=== PATIENT | female | born 1995 | race Hispanic/Latino ===

== ENCOUNTER 2020-08-29 11:34 | Emergency (ER) | payer SELFPAY ==
--- OUTSIDE RECORDS SUMMARY | 2020-08-29 11:36 | XMS REPORT | Continuity of Care Document ---
:1995 Author Organization [facility] t Address [address] [place] [address] Dr. Barney. [address] [place] [address] Care Team Providers Name Role Phone Unavailable Unavailable Unavailable Problems This patient has no known problems. Allergies, Adverse Reactions, Alerts This patient has no known allergies or adverse reactions. Medications This patient has no known medications. Procedures This patient has no known procedures. Results This patient has no known results.
[2020-08-29 14:03] LABS: Urine Blood 3+ (Negative); Urine Glucose Negative (Negative); Urine Protein Negative (Negative); Urine pH 5.5 (5.0-7.0)
[2020-08-29 14:15] LABS: Absolute Lymphocytes (CBC) 1.2 K/uL (0.7-4.9); Basophils % 0.4 % (0-1.3); Hematocrit 34.5 % (36.0-45.0); Lymphocytes % 17.3 % (15.3-44.8); MPV 8.6 fL (7.6-11.3); RBC Red Blood Cell Count 4.25 M/uL (3.86-4.86)
[2020-08-29 14:32] LABS: BUN Blood Urea Nitrogen 12 mg/dL (7-18); Bicarbonate 26 mmol/L (21-32); Glucose Level 92 mg/dL (74-106); Potassium 4.1 mmol/L (3.5-5.1); Sodium Level 140 mmol/L (136-145)
--- NOTE | 2020-08-29 15:04 | ER ---
Nurse's Notes [facility] Name: Shyann Seymour Age: 24 yrs Sex: Female : 1995 Arrival Date: 08/29/2020 Time: 11:37 Bed 14 Private MD: Diagnosis: Irregular menstruation, unspecified Presentation: 08/29 12:13 Chief complaint: Patient states: at work i was not feeling good and i was having hot tw2 flashes and feeling nauseous and jittery. also my period was a month late but i started my period today. they told me at work my face went pale. Coronavirus screen: At this time, the client does not indicate any symptoms associated with coronavirus-19. Ebola Screen: Patient denies travel to an Ebola-affected area in the 21 days before illness onset. Initial Sepsis Screen: Does the patient meet any 2 criteria? No. Patient's initial sepsis screen is negative. Does the patient have a suspected source of infection? No. Patient's initial sepsis screen is negative. Risk Assessment: Do you want to hurt yourself or someone else? Patient reports no desire to harm self or others. Onset of symptoms was August 29, 2020. 12:13 Method Of Arrival: Ambulatory tw2 12:13 Acuity: ORIN 3 tw2 Triage Assessment: 12:15 General: Appears in no apparent distress. obese, well groomed, Behavior is calm, tw2 cooperative, appropriate for age. Pain: Denies pain. GI: Reports nausea. Historical: - Allergies: 12:14 No Known Allergies; tw2 - Home Meds: 12:14 None [Active]; tw2 - PMHx: 12:14 None; tw2 - PSHx: 12:14 None; tw2 - Immunization history:: Adult Immunizations. - Social history:: Smoking status: . Screenin:55 Abuse screen: Denies threats or abuse. Nutritional screening: No deficits noted. em Tuberculosis screening: No symptoms or risk factors identified. Fall Risk None identified. Assessment: 14:10 General: Appears in no apparent distress. comfortable, Behavior is calm, cooperative, em appropriate for age. Pain: Denies pain. Neuro: Level of Consciousness is awake, alert, obeys commands, Oriented to person, place, time, situation, Appropriate for age. Cardiovascular: Capillary refill < 3 seconds Patient's skin is warm and dry. Respiratory: Airway is patent Respiratory effort is even, unlabored, Respiratory pattern is regular, symmetrical. GI: Abdomen is round non-distended. : Reports missing LMP, 3 weeks late. Derm: Skin is intact, is healthy with good turgor, Skin is pink, warm \T\ dry. Musculoskeletal: Capillary refill < 3 seconds. Vital Signs: 12:13 BP 123 / 86; Pulse 68; Resp 17; Temp 97.9(TE); Pulse Ox 100% on R/A; Weight 89.81 kg tw2 (R); Height 5 ft. 2 in. (157.48 cm); Pain 0/10; 12:13 Body Mass Index 36.21 (89.81 kg, 157.48 cm) tw2 ED Course: 11:37 Patient arrived in ED. ds1 12:14 Triage completed. tw2 12:15 Arm band placed on. tw2 13:45 [facility] Harrell [facility]C [facility]. kb 13:45 Carl Salazar MD is Attending Physician. kb 13:55 Sky Alexander, RN is Primary Nurse. em 13:55 Patient has correct armband on for positive identification. em 15:29 No provider procedures requiring assistance completed. Patient did not have IV access em during this emergency room visit. Administered Medications: No medications were administered Outcome: 15:03 Discharge ordered by . kb 15:29 Discharged to home ambulatory. em 15:29 Condition: good 15:29 Discharge instructions given to patient, Instructed on discharge instructions, follow up and referral plans. Demonstrated understanding of instructions, follow-up care. 15:30 Patient left the ED. em Signatures: Carolyn Harrell FNP-C FNP-Sky Jefferson, RN RN em Tonja Crump ds1 Lesly Serna RN RN tw2
--- NOTE | 2020-08-29 15:04 | EDPHYS ---
Physician Documentation [facility] Name: Shyann Seymour Age: 24 yrs Sex: Female : 1995 Arrival Date: 08/29/2020 Time: 11:37 Bed 14 Private MD: TAQUERIA Physician Carl Salazar HPI: 08/29 15:19 This 24 yrs old Female presents to ER via Ambulatory with complaints of Hot kb Flashes, Nausea. 15:19 The patient presents to the emergency department with nausea. Onset: The kb symptoms/episode began/occurred just prior to arrival. Possible causes: unknown. The symptoms are aggravated by nothing. The symptoms are alleviated by "cooling off". Associated signs and symptoms: Pertinent positives: nausea, shaky, vag bleeding, hot flash. Severity of symptoms: At their worst the symptoms were mild moderate in the emergency department the symptoms have resolved. The patient has not experienced similar symptoms in the past. The patient has not recently seen a physician. Pt reports she was standing at work and became hot, nauseated, and shaky. States she missed her period for a month and then started today. Reports history of anemia and heavy cycles. Symptoms resolved now. Historical: - Allergies: 12:14 No Known Allergies; tw2 - Home Meds: 12:14 None [Active]; tw2 - PMHx: 12:14 None; tw2 - PSHx: 12:14 None; tw2 - Immunization history:: Adult Immunizations. - Social history:: Smoking status: . ROS: 15:21 Constitutional: Negative for fever, chills, and weight loss, Cardiovascular: Negative kb for chest pain, palpitations, and edema, Respiratory: Negative for shortness of breath, cough, wheezing, and pleuritic chest pain, Abdomen/GI: Negative for abdominal pain, vomiting, diarrhea, and constipation. +nausea MS/Extremity: Negative for injury and deformity, Skin: Negative for injury, rash, and discoloration, Neuro: Negative for headache, weakness, numbness, tingling, and seizure. 15:22 : Positive for vaginal bleeding. kb Exam: 15:22 Constitutional: This is a well developed, well nourished patient who is awake, alert, kb and in no acute distress. Head/Face: Normocephalic, atraumatic. Cardiovascular: Regular rate and rhythm with a normal S1 and S2. No gallops, murmurs, or rubs. No pulse deficits. Respiratory: Respirations even and unlabored. No increased work of breathing, no retractions or nasal flaring. Abdomen/GI: Soft, non-tender. No distention Skin: Warm, dry with normal turgor. Normal color. MS/ Extremity: Pulses equal, no cyanosis. Neurovascular intact. Full, normal range of motion. Neuro: Awake and alert, GCS 15, oriented to person, place, time, and situation. Moves all extremities. Normal gait. Vital Signs: 12:13 BP 123 / 86; Pulse 68; Resp 17; Temp 97.9(TE); Pulse Ox 100% on R/A; Weight 89.81 kg tw2 (R); Height 5 ft. 2 in. (157.48 cm); Pain 0/10; 12:13 Body Mass Index 36.21 (89.81 kg, 157.48 cm) tw2 MDM: 13:46 Patient medically screened. kb 15:22 Data reviewed: vital signs, nurses notes. Data interpreted: Pulse oximetry: on room air kb is 100 %. Interpretation: normal. Counseling: I had a detailed discussion with the patient and/or guardian regarding: the historical points, exam findings, and any diagnostic results supporting the discharge/admit diagnosis, lab results, the need for outpatient follow up, a family practitioner, an OB/Gyne specialist, to return to the emergency department if symptoms worsen or persist or if there are any questions or concerns that arise at home. 08/29 14:03 Order name: Urine Dipstick-Ancillary; Complete Time: 14:15 EDMS 08/29 14:03 Order name: CBC with Diff; Complete Time: 14:17 kb 08/29 13:27 Order name: Urine Dipstick-Ancillary (obtain specimen); Complete Time: 14:05 kb 08/29 14:06 Order name: Basic Metabolic Panel em 08/29 14:07 Order name: Basic Metabolic Panel; Complete Time: 14:32 EDMS 08/29 14:11 Order name: Urine --Ancillary (enter results); Complete Time: 14:32 bd 08/29 13:27 Order name: Urine Test (obtain specimen); Complete Time: 14:05 kb Administered Medications: No medications were administered Disposition: 08/30 11:20 Co-signature as Attending Physician, Carl Salazar MD I agree with the assessment and vijaya plan of care. Disposition: 08/29/20 15:03 Discharged to Home. Impression: Irregular menstruation, unspecified. - Condition is Stable. - Discharge Instructions: Abnormal Uterine Bleeding, [id number]. - Medication Reconciliation Form, Thank You Letter, Antibiotic Education, Prescription Opioid Use, Work release form form. - Follow up: Emergency Department; When: As needed; Reason: Worsening of condition. Follow up: Private Physician; When: 2 - 3 days; Reason: Recheck today's complaints, Continuance of care, Re-evaluation by your physician. Signatures: Dispatcher [employer] EDCarolyn Echeverria, HOG ROOM SUPERVISOR-C HOG ROOM SUPERVISOR-Carl Cavazos MD MD cha Munoz, Edgar, RN RN em Lesly Serna RN RN tw2 Corrections: (The following items were deleted from the chart) 08/29 15:30 15:03 08/29/2020 15:03 Discharged to Home. Impression: Irregular menstruation, em unspecified. Condition is Stable. Forms are Medication Reconciliation Form, Thank You Letter, Antibiotic Education, Prescription Opioid Use. Follow up: Emergency Department; When: As needed; Reason: Worsening of condition. Follow up: Private Physician; When: 2 - 3 days; Reason: Recheck today's complaints, Continuance of care, Re-evaluation by your physician. kb
[2020-08-29 15:42] VITALS: BP 123/86; TEMP 97.9; O2SAT 100
== END 2020-08-29 15:30 | disposition home or self-care (01) ==
LOC: ER 11:34
DX: N92.6 Irregular menstruation, unspecified (principal)
CPT/HCPCS: 36415; 80048; 81003; 81025; 85025; 99281

== ENCOUNTER 2022-09-16 12:11 | Emergency (ER) | payer OTHER, SELFPAY ==
--- OUTSIDE RECORDS SUMMARY | 2022-09-16 12:22 | XMS REPORT | Continuity of Care Document ---
:1995 Author Organization [facility] t Address [address] [place] [address] Care Team Providers Name Role Phone Gordo Alatorre Primary Care Physician TRELL AGUILAR Attending Clinician Unavailable TRELL AGUILAR Attending Clinician Unavailable Lab, Kali - Db Attending Clinician Unavailable Darlin Car Attending Clinician [phone] NATE SIGALA Attending Clinician Unavailable Ultrasound, AngSamMfgrace Attending Clinician Unavailable Nate Sigala MD Attending Clinician Tootie Fernandez RN Attending Clinician Unavailable Doctor Unassigned, [place] Attending Clinician Unavailable DARLIN MAZARIEGOS Attending Clinician Unavailable Alba Cobian MD Attending Clinician ALBA COBIAN Attending Clinician Unavailable ALBA COBIAN Attending Clinician Unavailable Andrés Lackey Attending Clinician GARY KINCAID Attending Clinician Unavailable Gary Kincaid MD Attending Clinician DARREL HO Attending Clinician Unavailable HARRY CONLEY Attending Clinician Unavailable Payers Payer Name Policy Type Policy Number Effective Date Expiration Date S miguel angel [facility] [id number] 2022 00:00:00 Problems Condition Condition Condition Status Onset Resolution Last Treating Co mments Source Name Details Category Date Date Treatment Clinician Date Need for Need for Disease Active Unive rs tetanus, tetanus, 5-15 ity of diphtheria [place] 00[place] , [place] , and 00 Medical acellular acellular Bran ch pertussis pertussis (Tdap) (Tdap) vaccine vaccine Congestion Congestion Disease Active U nivers of upper of upper 4-17 ity of respirator respirator 00:00[place] y tract y tract 00 [facility] Branch Nausea and Nausea and Disease Active U nivers vomiting vomiting 1-18 ity of during during 00:00: [place] [facility] Rubella Rubella Disease Active 2021-04 Overview: Univ ers non-immune non-immune 2-23 Formattin ity of status, status, 00:00: g of this [place] antepartum antepartum 00 note Me dical might be Branch different from the original. Address pp Abnormal Abnormal Disease Active 2021-04 Overview: Un betty maternal maternal -23 Formattin ity of glucose glucose 00:00: g of this [place] tolerance, tolerance, 00 note Me dical antepartum antepartum might be Branch different from the original. Pending 3hr gtt Supervisio Supervisio Disease Active 2021-04 U nivers n of n of 2-22 ity of high-risk high-risk [place] [address] [facility] Multiparit Multiparit Disease Active 2021-04 U nivers y y 2-22 ity of 00:00: [place] 00 [facility] Branch History of History of Disease Active 2021-04 U nivers gestationa gestationa 2-22 it y of l l 00:00: [place] hypertensi hypertensi 00 Me dical on on Branch History of History of Disease Active 2021-04 U nivers twin twin 2-22 [place] 00 Medica l Bran ch History of History of Disease Active 2021-04 U nivers 2-22 ity of section section 00:00: [place] 00 [facility] Branch Desires Desires Disease Active 2021-04 Univers 2-22 ity of (vaginal (vaginal 00:00: [place] 00 Medical after after Branch ) ) trial trial Obesity in Obesity in Disease Active 2021-04 U nivers , , 2- it y of antepartum antepartum 00:00[place] 00 [place] History of History of Disease Active 2021-04 U nivers 2-22 it[place] of delivery, delivery, 00:[place] 00 Medi kvng , , Bran ch unspecifie unspecifie d d trimester trimester Routine Routine Disease Active Univers 9 it y of follow-up follow-up 00:[place] Anemia of Anemia of Disease Active Uni vers mother in mother in 01-20 ity of , , 00:00[place] 00 Me dical condition condition Bran ch Anemia of Anemia of Disease Active Overview: Univers mother in mother in 07-17 Formattin i ty of , , 00:00: g of this [place] antepartum antepartum 00 note Me dical might be Branch different from the original. Ferrous Sulfate 325mg and Vitamin C TID. Repeat in 1 month. ICD10 Diagnosis Term Pharm Tech Utility Asthma Asthma Disease Active Overview: Univer s - Formattin ity of 00:00: g of this [place] 00 note Medical might be Branch different from the original. ICD10 Diagnosis Term Pharm Tech Utility Allergies, Adverse Reactions, Alerts Allergy Allergy Status Severity Reaction(s) Onset Inactive Treating Comm ents Source Name Type Date Date Clinician NO KNOWN Drug Active Univers ALLERGIE Class ity of S [facility] Social History Social Habit Start Date Stop Date Quantity Comments Source ASSERTION 2022-03-09 [facility] 00:00:00 [facility] Alcohol intake 2022-09-09 2022-09-09 0 /d [facility] 00:00:00 00:00:00 [facility] Exposure to 2022-08-06 2022-08-16 Not sure [facility] -CoV-2 00:00:00 07:03:00 [facility] (event) [place] Tobacco use and 2022-05-15 2022-05-15 Smokeless tobacco Un iversity of exposure 00:00:00 00:00:00 non-user [facility] Sex Ass[birth year] At [birth year] Universit y of 00:00:00 00:00:00 [facility] Smoking Status Start Date Stop Date Source Never smoked tobacco [facility] Medications Ordered Filled Start Stop Current Ordering Indication Dosage Frequency Signature Comments Components Source Medication Medication Date Date Medication? Clinician (SIG) Name Name aspirin 81 Yes [id number] 81mg Take 1 Univers mg EC 4-25 tablet by ity of tablet 00:00: mouth in [place] 00 the Medical morning. Branch aspirin 81 Yes [id number] 81mg Take 1 Univers mg EC 4-25 tablet by ity of tablet 00:00: mouth in [place] 00 the Medical morning. Branch ferrous Yes [id number] 325mg Take 1 Un betty sulfate 4-22 tablet by ity of (IRON, 00:00: mouth in [place] FERROUS 00 the Medical SULFATE,) morning Branch 325 mg (65 and 1 mg iron) tablet in tablet the evening. ascorbic Yes [id number] 500mg Take 1 U nivers acid, 4-22 tablet by ity of vitamin C, 00:00: mouth in [place] 500 mg 00 the Medical tablet morning Branch and 1 tablet in the evening. ferrous 2022- Yes [id number] 325mg Take 1 Un betty sulfate 4-22 tablet by ity of (IRON, 00:00: mouth in [place] FERROUS 00 the Medical SULFATE,) morning Branch 325 mg (65 and 1 mg iron) tablet in tablet the evening. ascorbic 2022- Yes [id number] 500mg Take 1 U nivers acid, 4-22 tablet by ity of vitamin C, 00:00: mouth in [place] 500 mg 00 the Medical tablet morning Branch and 1 tablet in the evening. ondansetron Yes [id number] 8mg Take 1 Univers 8 mg 1-18 tablet by ity of disintegrat 00:00: mouth [place] ing tablet 00 every 8 Medica l (eight) Branch hours as needed for Nausea and Vomiting (N/V). aspirin 81 Yes [id number] 81mg Take 1 Univers mg EC 1-18 tablet by ity of tablet 00:00: mouth in [place] 00 the Medical morning. Branch ondansetron Yes [id number] 8mg Take 1 Univers 8 mg 1-18 tablet by ity of disintegrat 00:00: mouth [place] ing tablet 00 every 8 Medica l (eight) Branch hours as needed for Nausea and Vomiting (N/V). aspirin 81 3-0 Yes [id number] 81mg Take 1 Univers mg EC 1-18 tablet by ity of tablet 00:00: mouth in [place] 00 the Medical morning. Branch ondansetron 3-0 Yes [id number] 8mg Take 1 Univers 8 mg 1-18 tablet by ity of disintegrat 00:00: mouth [place] ing tablet 00 every 8 Medica l (eight) Branch hours as needed for Nausea and Vomiting (N/V). aspirin 81 2022-0 Yes [id number] 81mg Take 1 Univers mg EC 1-18 tablet by ity of tablet 00:00: mouth in [place] 00 the Medical morning. Branch ondansetron 3-0 Yes [id number] 8mg Take 1 Univers 8 mg 1-18 tablet by ity of disintegrat 00:00: mouth [place] ing tablet 00 every 8 Medica l (eight) Branch hours as needed for Nausea and Vomiting (N/V). aspirin 81 2022-0 Yes [id number] 81mg Take 1 Univers mg EC 1-18 tablet by ity of tablet 00:00: mouth in [place] 00 the Medical morning. Branch ondansetron 3-0 Yes [id number] 8mg Take 1 Univers 8 mg 1-18 tablet by ity of disintegrat 00:00: mouth [place] ing tablet 00 every 8 Medica l (eight) Branch hours as needed for Nausea and Vomiting (N/V). aspirin 81 3-0 Yes [id number] 81mg Take 1 Univers mg EC 1-18 tablet by ity of tablet 00:00: mouth in [place] 00 the Medical morning. Branch ondansetron 3-0 Yes [id number] 8mg Take 1 Univers 8 mg 1-18 tablet by ity of disintegrat 00:00: mouth [place] ing tablet 00 every 8 Medica l (eight) Branch hours as needed for Nausea and Vomiting (N/V). aspirin 81 3-0 Yes [id number] 81mg Take 1 Univers mg EC 1-18 tablet by ity of tablet 00:00: mouth in [place] 00 the Medical morning. Branch ondansetron 3-0 Yes [id number] 8mg Take 1 Univers 8 mg 1-18 tablet by ity of disintegrat 00:00: mouth [place] ing tablet 00 every 8 Medica l (eight) Branch hours as needed for Nausea and Vomiting (N/V). aspirin 81 3-0 Yes [id number] 81mg Take 1 Univers mg EC 1-18 tablet by ity of tablet 00:00: mouth in [place] 00 the Medical morning. Branch ondansetron 3-0 Yes [id number] 8mg Take 1 Univers 8 mg 1-18 tablet by ity of disintegrat 00:00: mouth [place] ing tablet 00 every 8 Medica l (eight) Branch hours as needed for Nausea and Vomiting (N/V). aspirin 81 2022-0 Yes [id number] 81mg Take 1 Univers mg EC 1-18 tablet by ity of tablet 00:00: mouth in [place] 00 the Medical morning. Branch ondansetron 3-0 Yes [id number] 8mg Take 1 Univers 8 mg 1-18 tablet by ity of disintegrat 00:00: mouth [place] ing tablet 00 every 8 Medica l (eight) Branch hours as needed for Nausea and Vomiting (N/V). aspirin 81 2022-0 Yes [id number] 81mg Take 1 Univers mg EC 1-18 tablet by ity of tablet 00:00: mouth in [place] 00 the Medical morning. Branch ondansetron 3-0 Yes [id number] 8mg Take 1 Univers 8 mg 1-18 tablet by ity of disintegrat 00:00: mouth [place] ing tablet 00 every 8 Medica l (eight) Branch hours as needed for Nausea and Vomiting (N/V). aspirin 81 3-0 Yes [id number] 81mg Take 1 Univers mg EC 1-18 tablet by ity of tablet 00:00: mouth in [place] 00 the Medical morning. Branch ondansetron 3-0 Yes [id number] 8mg Take 1 Univers 8 mg 1-18 tablet by ity of disintegrat 00:00: mouth [place] ing tablet 00 every 8 Medica l (eight) Branch hours as needed for Nausea and Vomiting (N/V). aspirin 81 3-0 Yes [id number] 81mg Take 1 Univers mg EC 1-18 tablet by ity of tablet 00:00: mouth in [place] 00 the Medical morning. Branch ondansetron 3-0 Yes [id number] 8mg Take 1 Univers 8 mg 1-18 tablet by ity of disintegrat 00:00: mouth [place] ing tablet 00 every 8 Medica l (eight) Branch hours as needed for Nausea and Vomiting (N/V). aspirin 81 3-0 Yes [id number] 81mg Take 1 Univers mg EC 1-18 tablet by ity of tablet 00:00: mouth in [place] 00 the Medical morning. Branch ondansetron 3-0 Yes [id number] 8mg Take 1 Univers 8 mg 1-18 tablet by ity of disintegrat 00:00: mouth [place] ing tablet 00 every 8 Medica l (eight) Branch hours as needed for Nausea and Vomiting (N/V). aspirin 81 2022-0 Yes [id number] 81mg Take 1 Univers mg EC 1-18 tablet by ity of tablet 00:00: mouth in [place] 00 the Medical morning. Branch ondansetron 3-0 Yes [id number] 8mg Take 1 Univers 8 mg 1-18 tablet by ity of disintegrat 00:00: mouth [place] ing tablet 00 every 8 Medica l (eight) Branch hours as needed for Nausea and Vomiting (N/V). aspirin 81 2022-0 Yes [id number] 81mg Take 1 Univers mg EC 1-18 tablet by ity of tablet 00:00: mouth in [place] 00 the Medical morning. Branch ondansetron 3-0 Yes [id number] 8mg Take 1 Univers 8 mg 1-18 tablet by ity of disintegrat 00:00: mouth [place] ing tablet 00 every 8 Medica l (eight) Branch hours as needed for Nausea and Vomiting (N/V). aspirin 81 3-0 Yes [id number] 81mg Take 1 Univers mg EC 1-18 tablet by ity of tablet 00:00: mouth in [place] 00 the Medical morning. Branch ondansetron 3-0 Yes [id number] 8mg Take 1 Univers 8 mg 1-18 tablet by ity of disintegrat 00:00: mouth [place] ing tablet 00 every 8 Medica l (eight) Branch hours as needed for Nausea and Vomiting (N/V). aspirin 81 3-0 Yes [id number] 81mg Take 1 Univers mg EC 1-18 tablet by ity of tablet 00:00: mouth in [place] 00 the Medical morning. Branch ondansetron 3-0 Yes [id number] 8mg Take 1 Univers 8 mg 1-18 tablet by ity of disintegrat 00:00: mouth [place] ing tablet 00 every 8 Medica l (eight) Branch hours as needed for Nausea and Vomiting (N/V). aspirin 81 0 Yes [id number] 81mg Take 1 Univers mg EC 1-18 tablet by ity of tablet 00:00: mouth in [place] 00 the Medical morning. [place] ondansetron Yes [id number] 8mg Take 1 Univers 8 mg 1-18 tablet by ity of disintegrat 00:00: mouth [place] ing tablet 00 every 8 Medica l (eight) Branch hours as needed for Nausea and Vomiting (N/V). ondansetron Yes [id number] 8mg Take 1 Univers 8 mg 1-18 tablet by ity of disintegrat 00:00: mouth [place] ing tablet 00 every 8 Medica l (eight) Branch hours as needed for Nausea and Vomiting (N/V). ondansetron Yes [id number] 8mg Take 1 Univers 8 mg 1-18 tablet by ity of disintegrat 00:00: mouth [place] ing tablet 00 every 8 Medica l (eight) Branch hours as needed for Nausea and Vomiting (N/V). aspirin 81 2022- No [id number] 81mg Take 1 Univers mg EC 1-18 04-21 tablet by ity of tablet 00:00: 00:00 mouth in [place] 00 :00 the Medical morning. [place] aspirin 81 2022- No [id number] 81mg Take 1 Univers mg EC 1-18 04-21 tablet by ity of tablet 00:00: 00:00 mouth in [place] 00 :00 the Medical morning. Branch 2021-04 Yes [id number] 1{tbl} Take 1 U nivers multivitami 2-22 tablet by ity of n ( 00:00: mouth in [place] VITAMIN) 00 the Medical tablet morning. Branch 2021-04 Yes [id number] 1{tbl} Take 1 U nivers multivitami 2-22 tablet by ity of n ( 00:00: mouth in [place] VITAMIN) 00 the Medical tablet morning. Branch 2021-04 Yes [id number] 1{tbl} Take 1 U nivers multivitami 2-22 tablet by ity of n ( 00:00: mouth in [place] VITAMIN) 00 the Medical tablet morning. Branch 2021-04 Yes [id number] 1{tbl} Take 1 U nivers multivitami 2-22 tablet by ity of n ( 00:00: mouth in [place] VITAMIN) 00 the Medical tablet morning. [place] 2021-04 Yes [id number] 1{tbl} Take 1 U nivers multivitami 2-22 tablet by ity of n ( 00:00: mouth in [place] VITAMIN) 00 the Medical tablet morning. [place] 2021-04 Yes [id number] 1{tbl} Take 1 U nivers multivitami 2-22 tablet by ity of n ( 00:00: mouth in [place] VITAMIN) 00 the Medical tablet morning. [place] 2021-04 Yes [id number] 1{tbl} Take 1 U nivers multivitami 2-22 tablet by ity of n ( 00:00: mouth in [place] VITAMIN) 00 the Medical tablet morning. [place] 2021-04 Yes [id number] 1{tbl} Take 1 U nivers multivitami 2-22 tablet by ity of n ( 00:00: mouth in [place] VITAMIN) 00 the Medical tablet morning. [place] 2021-04 Yes [id number] 1{tbl} Take 1 U nivers multivitami 2-22 tablet by ity of n ( 00:00: mouth in [place] VITAMIN) 00 the Medical tablet morning. [place] 2021-04 Yes [id number] 1{tbl} Take 1 U nivers multivitami 2-22 tablet by ity of n ( 00:00: mouth in [place] VITAMIN) 00 the Medical tablet morning. [place] 2021-04 Yes [id number] 1{tbl} Take 1 U nivers multivitami 2-22 tablet by ity of n ( 00:00: mouth in [place] VITAMIN) 00 the Medical tablet morning. [place] 2021-04 Yes [id number] 1{tbl} Take 1 U nivers multivitami 2-22 tablet by ity of n ( 00:00: mouth in [place] VITAMIN) 00 the Medical tablet morning. [facility] 2021-04 Yes [id number] 1{tbl} Take 1 U nivers multivitami 2-22 tablet by ity of n ( 00:00: mouth in [place] VITAMIN) 00 the Medical tablet morning. [facility] 2021-04 Yes [id number] 1{tbl} Take 1 U nivers multivitami 2-22 tablet by ity of n ( 00:00: mouth in [place] VITAMIN) 00 the Medical tablet morning. [place] 2021-04 Yes [id number] 1{tbl} Take 1 U nivers multivitami 2-22 tablet by ity of n ( 00:00: mouth in [place] VITAMIN) 00 the Medical tablet morning. [place] 2021-04 Yes [id number] 1{tbl} Take 1 U nivers multivitami 2-22 tablet by ity of n ( 00:00: mouth in [place] VITAMIN) 00 the Medical tablet morning. [place] 2021-04 Yes [id number] 1{tbl} Take 1 U nivers multivitami 2-22 tablet by ity of n ( 00:00: mouth in [place] VITAMIN) 00 the Medical tablet morning. [place] 2021-04 Yes [id number] 1{tbl} Take 1 U nivers multivitami 2-22 tablet by ity of n ( 00:00: mouth in [place] VITAMIN) 00 the Medical tablet morning. [place] 2021-04 Yes [id number] 1{tbl} Take 1 U nivers multivitami 2-22 tablet by ity of n ( 00:00: mouth in [place] VITAMIN) 00 the Medical tablet morning. [place] 2021-04 Yes [id number] 1{tbl} Take 1 U nivers multivitami 2-22 tablet by ity of n ( 00:00: mouth in [place] VITAMIN) 00 the Medical tablet morning. [place] 2021-04 Yes [id number] 1{tbl} Take 1 U nivers multivitami 2-22 tablet by ity of n ( 00:00: mouth in [place] VITAMIN) 00 the Medical tablet morning. [place] 2021-04 Yes [id number] 1{tbl} Take 1 U nivers multivitami 2-22 tablet by ity of n ( 00:00: mouth in [place] VITAMIN) 00 the Medical tablet morning. [place] 2021-04 Yes [id number] 1{tbl} Take 1 U nivers multivitami 2-22 tablet by ity of n ( 00:00: mouth in [place] VITAMIN) 00 the Medical tablet morning. [facility] 2021-04 Yes [id number] 1{tbl} Take 1 U nivers multivitami 2-22 tablet by ity of n ( 00:00: mouth in [place] VITAMIN) 00 the Medical tablet morning. [facility] 2021-04 Yes [id number] 1{tbl} Take 1 U nivers multivitami 2-22 tablet by ity of n ( 00:00: mouth in [place] VITAMIN) 00 the Medical tablet morning. [facility] 2021-04 Yes [id number] 1{tbl} Take 1 U nivers multivitami 2-22 tablet by ity of n ( 00:00: mouth in [place] VITAMIN) 00 the Medical tablet morning. [facility] 2021-04 Yes [id number] 1{tbl} Take 1 U nivers multivitami 2-22 tablet by ity of n ( 00:00: mouth in [place] VITAMIN) 00 the Medical tablet morning. [facility] 2021-04 Yes [id number] 1{tbl} Take 1 U nivers multivitami 2-22 tablet by ity of n ( 00:00: mouth in [place] VITAMIN) 00 the Medical tablet morning. [facility] 2021-04 Yes [id number] 1{tbl} Take 1 U nivers multivitami 2-22 tablet by ity of n ( 00:00: mouth in [place] VITAMIN) 00 the Medical tablet morning. [facility] 2021-04 Yes [id number] 1{tbl} Take 1 U nivers multivitami 2-22 tablet by ity of n ( 00:00: mouth in [place] VITAMIN) 00 the Medical tablet morning. [place] ketorolac 2021-04 No 30mg 30 mg, Unive rs (TORADOL) 0-06 -06 Slow IV ity of injection 09:30: 08:27 [place], [place] 30 mg 00 :00 ONCE, 1 Medical dose, On [facility] 01/31/22 at 0430, Routine cefTRIAXone 2021-04- No 1000mg 1,000 mg, Univers (ROCEPHIN) 0-06 10-06 IV ity of 1,000 mg in 09:00: 09:25 Piggyback, [place] NaCl 0.9% 00 :00 ONCE, 1 Medical (NS) 50 mL dose, On [facility] h MINI-BAG [place] 01/31/22 at 0400, Administer over 30 Minutes, 50 mL
Reas on for Anti-Infec tive: Documented Infection< br>Documen tyron Infection Site: Urine<br&g t;Duration of Therapy: Other (see Comments) cefdinir 2021-04 Yes [id number] 300mg Take 1 U nivers 300 mg 0-06 capsule by ity of capsule 00:00: mouth in [place] 00 the Medical morning Branch and 1 capsule in the evening. phenazopyri 2021-04 Yes [id number] 200mg Take 1 Univers dine 200 mg 0-06 tablet by ity of tablet 00:00: mouth in [place] 00 the Medical morning Branch and 1 tablet at noon and 1 tablet in the evening. ibuprofen 2021-04 Yes [id number] 800mg Take 1 Univers 800 mg 0-06 tablet by ity of tablet 00:00: mouth [place] 00 every 8 Medical (eight) Branch hours as needed for Pain (scale 4-6). cefdinir 2021-04- No [id number] 300mg Take 1 Univers 300 mg 0-06 12-22 capsule by ity of capsule 00:00: 00:00 mouth in [place] 00 :00 the Medical morning Branch and 1 capsule in the evening. phenazopyri 2021-04- No [id number] 200mg Take 1 Univers dine 200 mg 0-06 12-22 tablet by it y of tablet 00:00: 00:00 mouth in [place] 00 :00 the Medical morning Branch and 1 tablet at noon and 1 tablet in the evening. ibuprofen 2021-04- No [id number] 800mg Take 1 Univers 800 mg 0-06 12-22 tablet by ity of tablet 00:00: 00:00 mouth [place] 00 :00 every 8 Medical (eight) Branch hours as needed for Pain (scale 4-6). cefdinir 2021-04- No [id number] 300mg Take 1 Univers 300 mg 0-06 12-22 capsule by ity of capsule 00:00: 00:00 mouth in [place] 00 :00 the Medical morning Branch and 1 capsule in the evening. phenazopyri 2021-04- No [id number] 200mg Take 1 Univers dine 200 mg 0-06 12-22 tablet by it y of tablet 00:00: 00:00 mouth in [place] 00 :00 the Medical morning Branch and 1 tablet at noon and 1 tablet in the evening. ibuprofen 2021-04- No [id number] 800mg Take 1 Univers 800 mg 004-18 tablet by ity of tablet 00:00: 00:00 mouth [place] 00 :00 every 8 Medical (eight) Branch hours as needed for Pain (scale 4-6). cefdinir 2021-04- No [id number] 300mg Take 1 Univers 300 mg 004-18 capsule by ity of capsule 00:00: 00:00 mouth in [place] 00 :00 the Medical morning Branch and 1 capsule in the evening. phenazopyri 2021-04- No [id number] 200mg Take 1 Univers dine 200 mg 004-18 tablet by it y of tablet 00:00: 00:00 mouth in [place] 00 :00 the Medical morning Branch and 1 tablet at noon and 1 tablet in the evening. ibuprofen 2021-04- No [id number] 800mg Take 1 Univers 800 mg 004-18 tablet by ity of tablet 00:00: 00:00 mouth [place] 00 :00 every 8 Medical (eight) Branch hours as needed for Pain (scale 4-6). phenazopyri 2020-0 Yes [id number] 200mg Take 2 Univers dine 3-24 tablets by ity of (PYRIDIUM) 00:00: [place] 100 mg 00 (three) Medical tablet times Branch daily as needed for Pain (scale 4-6). phenazopyri 2020-0 Yes [id number] 200mg Take 2 Univers dine 3-24 tablets by ity of (PYRIDIUM) 00:00: [place] mg 00 (three) Medical tablet times Branch daily as needed for Pain (scale 4-6). phenazopyri 2020-0 Yes [id number] 200mg Take 2 Univers dine 3-24 tablets by ity of (PYRIDIUM) 00:00: [place] mg 00 (three) Medical tablet times Branch daily as needed for Pain (scale 4-6). phenazopyri 2020-0 2021- No [id number] 200mg Take 2 Univers dine 3-24 12-22 tablets by ity of (PYRIDIUM) 00:00: 00:00 mouth 3 [place] 100 mg 00 :00 (three) Medical tablet times Branch daily as needed for Pain (scale 4-6). phenazopyri 2021- No [id number] 200mg Take 2 Univers dine 3-24 12-22 tablets by ity of (PYRIDIUM) 00:00: 00:00 mouth 3 [place] 100 mg 00 :00 (three) Medical tablet times Branch daily as needed for Pain (scale 4-6). phenazopyri No [id number] 200mg Take 2 Univers dine 3-24 12-22 tablets by ity of (PYRIDIUM) 00:00: 00:00 mouth 3 [place] 100 mg 00 :00 (three) Medical tablet times Branch daily as needed for Pain (scale 4-6). ibuprofen Yes 600mg Take 1 Unive rs 600 mg 9- tablet by ity of tablet 00:00: mouth [place] 00 every 6 Medical (six) Branch hours as needed for Pain (scale 1-3) or Pain (scale 4-6). ibuprofen Yes 600mg Take 1 Unive rs 600 mg 9-01 tablet by ity of tablet 00:00: mouth [place] 00 every 6 Medical (six) Branch hours as needed for Pain (scale 1-3) or Pain (scale 4-6). ibuprofen Yes 600mg Take 1 Unive rs 600 mg 9-01 tablet by ity of tablet 00:00: mouth [place] 00 every 6 Medical (six) Branch hours as needed for Pain (scale 1-3) or Pain (scale 4-6). ibuprofen No 600mg Take 1 Univ ers 600 mg 9-04-18 tablet by ity of tablet 00:00: 00:00 mouth [place] 00 :00 every 6 Medical (six) Branch hours as needed for Pain (scale 1-3) or Pain (scale 4-6). ibuprofen No 600mg Take 1 Univ ers 600 mg 9-04-18 tablet by ity of tablet 00:00: 00:00 mouth [place] 00 :00 every 6 Medical (six) Branch hours as needed for Pain (scale 1-3) or Pain (scale 4-6). ibuprofen 2017-0 2022- No 600mg Take 1 Univ ers 600 mg 12-27 12-22 tablet by ity of tablet 00:00: 00:00 mouth [place] 00 :00 every 6 Medical (six) Branch hours as needed for Pain (scale 1-3) or Pain (scale 4-6). ibuprofen Yes 600mg Take 1 Unive rs 600 mg 8-31 tablet by ity of tablet 00:00: mouth [place] 00 every 6 Medical (six) Branch hours as needed for Pain (scale 1-3) or Pain (scale 4-6) (Pain). Take with food or milk. ibuprofen Yes 600mg Take 1 Unive rs 600 mg 8-31 tablet by ity of tablet 00:00: mouth [place] 00 every 6 Medical (six) Branch hours as needed for Pain (scale 1-3) or Pain (scale 4-6) (Pain). Take with food or milk. ibuprofen Yes 600mg Take 1 Unive rs 600 mg 8-31 tablet by ity of tablet 00:00: mouth [place] 00 every 6 Medical (six) Branch hours as needed for Pain (scale 1-3) or Pain (scale 4-6) (Pain). Take with food or milk. ibuprofen 2021- No 600mg Take 1 Univ ers 600 mg 8-31 12-22 tablet by ity of tablet 00:00: 00:00 mouth [place] 00 :00 every 6 Medical (six) Branch hours as needed for Pain (scale 1-3) or Pain (scale 4-6) (Pain). Take with food or milk. ibuprofen 2021- No 600mg Take 1 Univ ers 600 mg 8-31 12-22 tablet by ity of tablet 00:00: 00:00 mouth [place] 00 :00 every 6 Medical (six) Branch hours as needed for Pain (scale 1-3) or Pain (scale 4-6) (Pain). Take with food or milk. ibuprofen 2021- No 600mg Take 1 Univ ers 600 mg 8-31 12-22 tablet by ity of tablet 00:00: 00:00 mouth [place] 00 :00 every 6 Medical (six) Branch hours as needed for Pain (scale 1-3) or Pain (scale 4-6) (Pain). Take with food or milk. ferrous Yes [id number] 325mg Take 1 Un betty sulfate 7-03 tablet by ity of (IRON, 00:00: mouth 3 [place] FERROUS 00 (three) Medical SULFATE,) times Branch 325 mg (65 daily with mg iron) meals. tablet ferrous Yes [id number] 325mg Take 1 Un betty sulfate 7-03 tablet by ity of (IRON, 00:00: mouth 3 [place] FERROUS 00 (three) Medical SULFATE,) times Branch 325 mg (65 daily with mg iron) meals. tablet ferrous Yes [id number] 325mg Take 1 Un betty sulfate 7-03 tablet by ity of (IRON, 00:00: mouth 3 [place] FERROUS 00 (three) Medical SULFATE,) times Branch 325 mg (65 daily with mg iron) meals. tablet ferrous 2021- No [id number] 325mg Take 1 U nivers sulfate 7- 12-22 tablet by ity of (IRON, 00:00: 00:00 mouth 3 [place] FERROUS 00 :00 (three) Medical SULFATE,) times Branch 325 mg (65 daily with mg iron) meals. tablet ferrous 2021- No [id number] 325mg Take 1 U nivers sulfate 7- 12-22 tablet by ity of (IRON, 00:00: 00:00 mouth 3 [place] FERROUS 00 :00 (three) Medical SULFATE,) times Branch 325 mg (65 daily with mg iron) meals. tablet ferrous 2021- No [id number] 325mg Take 1 U nivers sulfate 7- 12-22 tablet by ity of (IRON, 00:00: 00:00 mouth 3 [place] FERROUS 00 :00 (three) Medical SULFATE,) times Branch 325 mg (65 daily with mg iron) meals. tablet Yes [id number] 1{tbl} Take 1 U nivers Vit-Iron 2-09 tablet by ity of Fumarate-FA 00:00: mouth [place] (RIGHT STEP 00 daily. She Me dical may have Branch VITAMINS) any brand 27-0.8 mg covered by per tablet her insurance. Yes [id number] 1{tbl} Take 1 U nivers Vit-Iron 2-09 tablet by ity of Fumarate-FA 00:00: mouth [place] (RIGHT STEP 00 daily. She Me dical may have Branch VITAMINS) any brand 27-0.8 mg covered by per tablet her insurance. Yes [id number] 1{tbl} Take 1 U nivers Vit-Iron 2-09 tablet by ity of Fumarate-FA 00:00: mouth [place] (RIGHT STEP 00 daily. She Me dical may have Branch VITAMINS) any brand 27-0.8 mg covered by per tablet her insurance. Yes [id number] 1{tbl} Take 1 U nivers Vit-Iron 2-09 tablet by ity of Fumarate-FA 00:00: mouth [place] (RIGHT STEP 00 daily. She Me dical may have Branch VITAMINS) any brand 27-0.8 mg covered by per tablet her insurance. Yes [id number] 1{tbl} Take 1 U nivers Vit-Iron 2-09 tablet by ity of Fumarate-FA 00:00: mouth [place] (RIGHT STEP 00 daily. She Me dical may have Branch VITAMINS) any brand 27-0.8 mg covered by per tablet her insurance. Yes [id number] 1{tbl} Take 1 U nivers Vit-Iron 2-09 tablet by ity of Fumarate-FA 00:00: mouth [place] (RIGHT STEP 00 daily. She Me dical may have Branch VITAMINS) any brand 27-0.8 mg covered by per tablet her insurance. Yes [id number] 1{tbl} Take 1 U nivers Vit-Iron 2-09 tablet by ity of Fumarate-FA 00:00: mouth [place] (RIGHT STEP 00 daily. She Me dical may have Branch VITAMINS) any brand 27-0.8 mg covered by per tablet her insurance. 2017 Yes [id number] 1{tbl} Take 1 U nivers Vit-Iron 2-09 tablet by ity of Fumarate-FA 00:00: mouth [place] (RIGHT STEP 00 daily. She Me dical may have Branch VITAMINS) any brand 27-0.8 mg covered by per tablet her insurance. 2017 Yes [id number] 1{tbl} Take 1 U nivers Vit-Iron 2-09 tablet by ity of Fumarate-FA 00:00: mouth [place] (RIGHT STEP 00 daily. She Me dical may have Branch VITAMINS) any brand 27-0.8 mg covered by per tablet her insurance. Yes [id number] 1{tbl} Take 1 U nivers Vit-Iron 2-09 tablet by ity of Fumarate-FA 00:00: mouth [place] (RIGHT STEP 00 daily. She Me dical may have Branch VITAMINS) any brand 27-0.8 mg covered by per tablet her insurance. Yes [id number] 1{tbl} Take 1 U nivers Vit-Iron 2-09 tablet by ity of Fumarate-FA 00:00: mouth [place] (RIGHT STEP 00 daily. She Me dical may have Branch VITAMINS) any brand 27-0.8 mg covered by per tablet her insurance. Yes [id number] 1{tbl} Take 1 U nivers Vit-Iron 2-09 tablet by ity of Fumarate-FA 00:00: mouth [place] (RIGHT STEP 00 daily. She Me dical may have Branch VITAMINS) any brand 27-0.8 mg covered by per tablet her insurance. Yes [id number] 1{tbl} Take 1 U nivers Vit-Iron 2-09 tablet by ity of Fumarate-FA 00:00: mouth [place] (RIGHT STEP 00 daily. She Me dical may have Branch VITAMINS) any brand 27-0.8 mg covered by per tablet her insurance. 2022- No [id number] 1{tbl} Take 1 Univers Vit-Iron 2-09 01-18 tablet by ity o f Fumarate-FA 00:00: [place] ([place] 00 :00 daily. She Me dical may have Branch VITAMINS) any brand 27-0.8 mg covered by per tablet her insurance. Immunizations Ordered Immunization Filled Immunization Date Status Commen ts Source Name Name [facility] 2022-09-09 Completed [facility] of 00:00:00 [facility] TD 2016-11-28 Completed University of 00:00:00 [facility] TDAP 2016-11-28 Completed University of 00:00:00 [facility] TDAP 2016-11-28 Completed University of 00:00:00 [facility] TDAP 2016-11-28 Completed University of 00:00:00 [facility] TDAP 2016-11-28 Completed University of 00:00:00 [facility] TDAP 2016-11-28 Completed University of 00:00:00 [facility] TDAP 2016-11-28 Completed of 00:00:00 [facility] TDAP 2016-11-28 Completed University of 00:00:00 [facility] TDAP 2016-11-28 Completed University of 00:00:00 [facility] TDAP 2016-11-28 Completed University of 00:00:00 [place] [facility] TDAP 2016-11-28 Completed University of 00:00:00 [place] [facility] TDAP 2016-11-28 Completed University of 00:00:00 [place] [facility] TDAP 2016-11-28 Completed University of 00:00:00 [place] [facility] TDAP 2016-11-28 Completed University of 00:00:00 [place] [facility] TDAP 2016-11-28 Completed University of 00:00:00 [place] [facility] TDAP 2016-11-28 Completed University of 00:00:00 [place] [facility] TDAP 2016-11-28 Completed University of 00:00:00 [facility] TDAP 2016-11-28 Completed University of 00:00:00 [facility] TDAP 2016-11-28 Completed [facility] of 00:00:00 [facility] TDAP 2016-11-28 Completed [facility] of 00[facility]00:00 [facility] TDAP 2016-11-28 Completed [facility] of 00:00:00 [facility] TDAP 2016-11-28 Completed University of 00:00:00 [facility] TDAP 2016-11-28 Completed [facility] of 00:00:00 [facility] TDAP 2016-11-28 Completed University of 00:00:00 [facility] TDAP 2016-11-28 Completed University of 00:00:00 [facility] TDAP 2016-11-28 Completed University of 00:00:00 [facility] TDAP 2016-11-28 Completed University of 00:00:00 [facility] TDAP 2016-11-28 Completed University of 00:00:00 [place] [facility] TDAP 2016-11-28 Completed [facility] of 00:00:00 [facility] TDAP 2016-11-28 Completed University of 00:00:00 [facility] TDAP 2016-11-28 Completed University of 00:00:00 [facility] TDAP 2016-11-28 Completed University of 00:00:00 [place] [facility] TDAP 2016-11-28 Completed University of 00:00:00 [facility] TDAP 2016-11-28 Completed University of 00:00:00 [facility] HPV 2013-08-26 Completed University of 00:00:00 [facility] HPV 2013-08-26 Completed University of 00:00:00 [facility] Branch HPV 2013-08-26 Completed [facility] of 00:00:00 [facility] Branch HPV 2013-08-26 Completed University of 00:00:00 [facility] HPV 2013-08-26 Completed University of 00:00:00 [place] [facility] HPV 2013-08-26 Completed [facility] of 00:00:00 [facility] HPV 2013-08-26 Completed University of 00:00:00 [facility] HPV 2013-08-26 Completed University of 00:00:00 [facility] HPV 2013-08-26 Completed University of 00:00:00 [facility] HPV 2013-08-26 Completed University of 00:00:00 [facility] HPV 2013-08-26 Completed University of 00:00:00 [facility] HPV 2013-08-26 Completed University of 00:00:00 [facility] Branch Meningococcal 2013-08-26 Completed University of Polysaccharide 00:00:00 [place] [facility]i kvng (groups A, C, Y and Branc h W-135) conjugate vaccine (MCV4P) HPV 2013-08-26 Completed University of 00:00:00 [facility] Meningococcal 2013-08-26 Completed University of Polysaccharide 00:00:00 [place] Medi kvng (groups A, C, Y and Branc h W-135) conjugate vaccine (MCV4P) HPV 2013-08-26 Completed University of 00:00:00 [facility] Meningococcal 2013-08-26 Completed University of Polysaccharide 00:00:00 [place] Medi kvng (groups A, C, Y and Branc h W-135) conjugate vaccine (MCV4P) HPV 2013-08-26 Completed University of 00:00:00 [facility] Branch HPV 2013-08-26 Completed University of 00:00:00 [facility] Meningococcal 2013-08-26 Completed University of Polysaccharide 00:00:00 [place] Medi kvng (groups A, C, Y and Branc h W-135) conjugate vaccine (MCV4P) HPV 2013-08-26 Completed University of 00:00:00 [facility] Meningococcal 2013-08-26 Completed University of Polysaccharide 00:00:00 [place] Med[facility] kv[facility] (groups A, C, Y and Branc h W-135) conjugate vaccine (MCV4P) HPV 2013-08-26 Completed University of 00:00:00 [facility] Meningococcal 2013-08-26 Completed University of Polysaccharide 00:00:00 [place] Med[facility] kv[facility] (groups A, C, Y and Branc h W-135) conjugate vaccine (MCV4P) HPV 2013-08-26 Completed University of 00:00:00 [facility] Meningococcal 2013-08-26 Completed University of Polysaccharide 00:00:00 [place] Med[facility] kv[facility] (groups A, C, Y and Branc h W-135) conjugate vaccine (MCV4P) HPV 2013-08-26 Completed University of 00:00:00 [facility] Meningococcal 2013-08-26 Completed University of Polysaccharide 00:00:00 [place] Medi kv[facility] (groups A, C, Y and Branc h W-135) conjugate vaccine (MCV4P) HPV 2013-08-26 Completed University of 00:00:00 [facility] Meningococcal 2013-08-26 Completed University of Polysaccharide 00:00:00 [place] Med[facility] kv[facility] (groups A, C, Y and Branc h W-135) conjugate vaccine (MCV4P) HPV 2013-08-26 Completed University of 00:00:00 [facility] Meningococcal 2013-08-26 Completed University of Polysaccharide 00:00:00 [place] Medi kv[facility] (groups A, C, Y and Branc h W-135) conjugate vaccine (MCV4P) HPV 2013-08-26 Completed University of 00:00:00 [facility] Meningococcal 2013-08-26 Completed University of Polysaccharide 00:00:00 [place] Med[facility] kv[facility] (groups A, C, Y and Branc h W-135) conjugate vaccine (MCV4P) HPV 2013-08-26 Completed University of 00:00:00 [facility] HPV 2013-08-26 Completed University of 00:00:00 [facility] Meningococcal 2013-08-26 Completed University of Polysaccharide 00:00:00 [place] Medi kv[facility] (groups A, C, Y and Branc h W-135) conjugate vaccine (MCV4P) HPV 2013-08-26 Completed University of 00:00:00 [facility] Meningococcal 2013-08-26 Completed University of Polysaccharide 00:00:00 [place] Med[facility] kv[facility] (groups A, C, Y and Branc h W-135) conjugate vaccine (MCV4P) HPV 2013-08-26 Completed University of 00:00:00 [facility] Meningococcal 2013-08-26 Completed University of Polysaccharide 00:00:00 [place] Medi kv[facility] (groups A, C, Y and Branc h W-135) conjugate vaccine (MCV4P) HPV 2013-08-26 Completed University of 00:00:00 [facility] Meningococcal 2013-08-26 Completed University of Polysaccharide 00:00:00 [place] Medi kv[facility] (groups A, C, Y and Branc h W-135) conjugate vaccine (MCV4P) HPV 2013-08-26 Completed University of 00:00:00 [facility] Meningococcal 2013-08-26 Completed University of Polysaccharide 00:00:00 [place] Medi kv[facility] (groups A, C, Y and Branc h W-135) conjugate vaccine (MCV4P) HPV 2013-08-26 Completed University of 00:00:00 [facility] Meningococcal 2013-08-26 Completed University of Polysaccharide 00:00:00 [place] Medi kv[facility] (groups A, C, Y and Branc h W-135) conjugate vaccine (MCV4P) HPV 2013-08-26 Completed University of 00:00:00 [facility] Meningococcal 2013-08-26 Completed University of Polysaccharide 00:00:00 [place] Medi kv[facility] (groups A, C, Y and Branc h W-135) conjugate vaccine (MCV4P) HPV 2013-08-26 Completed University of 00:00:00 [facility] Meningococcal 2013-08-26 Completed University of Polysaccharide 00:00:00 [place] Medi kv[facility] (groups A, C, Y and Branc h W-135) conjugate vaccine (MCV4P) HPV 2013-08-26 Completed University of 00:00:00 [facility] Meningococcal 2013-08-26 Completed University of Polysaccharide 00:00:00 [place] Medi kv[facility] (groups A, C, Y and Branc h W-135) conjugate vaccine (MCV4P) HPV 2013-08-26 Completed University of 00:00:00 [facility] Meningococcal 2013-08-26 Completed University of Polysaccharide 00:00:00 [place] Med[facility] (groups A, C, Y and Branc h W-135) conjugate vaccine (MCV4P) MMR Booster 2012-10-15 Completed University of 00:00:00 [facility] MMR Booster 2012-10-15 Completed University of 00:00:00 [facility] MMR Booster 2012-10-15 Completed University of 00:00:00 [facility] MMR Booster 2012-10-15 Completed University of 00:00:00 [facility] MMR Booster 2012-10-15 Completed University of 00:00:00 [facility] MMR Booster 2012-10-15 Completed University of 00:00:00 [facility] MMR Booster 2012-10-15 Completed University of 00:00:00 [facility] MMR Booster 2012-10-15 Completed University of 00:00:00 [facility] MMR Booster 2012-10-15 Completed University of 00:00:00 [facility] MMR Booster 2012-10-15 Completed University of 00:00:00 [facility] MMR Booster 2012-10-15 Completed University of 00:00:00 [facility] MMR Booster 2012-10-15 Completed University of 00:00:00 [facility] MMR Booster 2012-10-15 Completed University of 00:00:00 [facility] MMR Booster 2012-10-15 Completed University of 00:00:00 [facility] MMR Booster 2012-10-15 Completed University of 00:00:00 [facility] MMR Booster 2012-10-15 Completed University of 00:00:00 [facility] MMR Booster 2012-10-15 Completed University of 00:00:00 [facility] MMR Booster 2012-10-15 Completed University of 00:00:00 [facility] MMR Booster 2012-10-15 Completed University of 00:00:00 [facility] MMR Booster 2012-10-15 Completed University of 00:00:00 [facility] MMR Booster 2012-10-15 Completed University of 00:00:00 [facility] MMR Booster 2012-10-15 Completed University of 00:00:00 [facility] MMR Booster 2012-10-15 Completed University of 00:00:00 [facility] MMR Booster 2012-10-15 Completed University of 00:00:00 [facility] MMR Booster 2012-10-15 Completed University of 00:00:00 [facility] MMR Booster 2012-10-15 Completed University of 00:00:00 [facility] MMR Booster 2012-10-15 Completed University of 00:00:00 [facility] MMR Booster 2012-10-15 Completed University of 00:00:00 [facility] MMR Booster 2012-10-15 Completed University of 00:00:00 [facility] MMR Booster 2012-10-15 Completed University of 00:00:00 [facility] MMR Booster 2012-10-15 Completed University of 00:00:00 [facility] MMR Booster 2012-10-15 Completed University of 00:00:00 [place] [facility] MMR Booster 2012-10-15 Completed University of 00:00:00 [place] [facility] MMR Booster 2012-10-15 Completed University of 00:00:00 [place] [facility] TDAP 2012-07-16 Completed University of 00:00:00 [place] [facility] TDAP 2012-07-16 Completed University of 00:00:00 [place] [facility] TDAP 2012-07-16 Completed University of 00:00:00 [place] [facility] TDAP 2012-07-16 Completed University of 00:00:00 [place] [facility] TDAP 2012-07-16 Completed University of 00:00:00 [place] [facility] TDAP 2012-07-16 Completed University of 00:00:00 [place] [facility] TDAP 2012-07-16 Completed University of 00:00:00 [place] [facility] TDAP 2012-07-16 Completed University of 00:00:00 [place] [facility] TDAP 2012-07-16 Completed University of 00:00:00 [place] [facility] TDAP 2012-07-16 Completed University of 00:00:00 [place] [facility] TDAP 2012-07-16 Completed University of 00:00:00 [place] [facility] TDAP 2012-07-16 Completed University of 00:00:00 [place] [facility] TDAP 2012-07-16 Completed University of 00:00:00 [place] [facility] TDAP 2012-07-16 Completed University of 00:00:00 [place] [facility] TDAP 2012-07-16 Completed University of 00:00:00 [place] [facility] TDAP 2012-07-16 Completed University of 00:00:00 [place] [facility] TDAP 2012-07-16 Completed University of 00:00:00 [place] [facility] TDAP 2012-07-16 Completed University of 00:00:00 [place] [facility] TDAP 2012-07-16 Completed University of 00:00:00 [place] [facility] TDAP 2012-07-16 Completed University of 00:00:00 [place] [facility] TDAP 2012-07-16 Completed University of 00:00:00 [place] [facility] TDAP 2012-07-16 Completed University of 00:00:00 [place] [facility] TDAP 2012-07-16 Completed University of 00:00:00 [place] [facility] TDAP 2012-07-16 Completed University of 00:00:00 [place] [facility] TDAP 2012-07-16 Completed University of 00:00:00 [place] [facility] TDAP 2012-07-16 Completed University of 00:00:00 [place] [facility] TDAP 2012-07-16 Completed University of 00:00:00 [place] [facility] TDAP 2012-07-16 Completed University of 00:00:00 [place] [facility] TDAP 2012-07-16 Completed University of 00:00:00 [place] [facility] TDAP 2012-07-16 Completed University of 00:00:00 [place] [facility] TDAP 2012-07-16 Completed University of 00:00:00 [place] [facility] TDAP 2012-07-16 Completed University of 00:00:00 [place] [facility] TDAP 2012-07-16 Completed University of 00:00:00 [place] [facility] TDAP 2012-07-16 Completed [facility] of 00:00:00 [facility] HPV 2007-12-22 Completed University of 00:00:00 [place] [facility] HPV 2007-12-22 Completed University of 00:00:00 [facility] HPV 2007-12-22 Completed University of 00:00:00 [place] [facility] HPV 2007-12-22 Completed University of 00:00:00 [place] [facility] HPV 2007-12-22 Completed University of 00:00:00 [place] [facility] HPV 2007-12-22 Completed University of 00:00:00 [place] [facility] HPV 2007-12-22 Completed University of 00:00:00 [place] [facility] HPV 2007-12-22 Completed University of 00:00:00 [place] [facility] HPV 2007-12-22 Completed University of 00:00:00 [place] [facility] HPV 2007-12-22 Completed University of 00:00:00 [place] [facility] HPV 2007-12-22 Completed University of 00:00:00 [place] [facility] HPV 2007-12-22 Completed [facility] of 00:00:00 [facility] Meningococcal 2007-12-22 Completed University of Polysaccharide 00:00:00 [place] [facility] (groups A, C, Y and Branc h W-135) conjugate vaccine (MCV4P) TDAP 2007-12-22 Completed [facility] of 00:00:00 [facility] HPV 2007-12-22 Completed [facility] of 00:00:00 [facility] Meningococcal 2007-12-22 Completed University of Polysaccharide 00:00:00 [place] [facility] (groups A, C, Y and Branc h W-135) conjugate vaccine (MCV4P) TDAP 2007-12-22 Completed University of 00:00:00 [facility] HPV 2007-12-22 Completed University of 00:00:00 [place] [facility] HPV 2007-12-22 Completed [facility] of 00:00:00 [facility] Meningococcal 2007-12-22 Completed University of Polysaccharide 00:00:00 [place] [facility] (groups A, C, Y and Branc h W-135) conjugate vaccine (MCV4P) TDAP 2007-12-22 Completed University of 00:00:00 [facility] HPV 2007-12-22 Completed University of 00:00:00 [facility] Meningococcal 2007-12-22 Completed University of Polysaccharide 00:00:00 [place] [facility] (groups A, C, Y and Branc h W-135) conjugate vaccine (MCV4P) TDAP 2007-12-22 Completed University of 00:00:00 [facility] HPV 2007-12-22 Completed University of 00:00:00 [facility] Meningococcal 2007-12-22 Completed University of Polysaccharide 00:00:00 [place] [facility] (groups A, C, Y and Branc h W-135) conjugate vaccine (MCV4P) TDAP 2007-12-22 Completed University of 00:00:00 [facility] HPV 2007-12-22 Completed University of 00:00:00 [facility] Meningococcal 2007-12-22 Completed University of Polysaccharide 00:00:00 [place] [facility] (groups A, C, Y and Branc h W-135) conjugate vaccine (MCV4P) TDAP 2007-12-22 Completed University of 00:00:00 [facility] HPV 2007-12-22 Completed University of 00:00:00 [facility] Meningococcal 2007-12-22 Completed University of Polysaccharide 00:00:00 [place] [facility] (groups A, C, Y and Branc h W-135) conjugate vaccine (MCV4P) TDAP 2007-12-22 Completed University of 00:00:00 [facility] HPV 2007-12-22 Completed University of 00:00:00 [facility] Meningococcal 2007-12-22 Completed University of Polysaccharide 00:00:00 [place] [facility] (groups A, C, Y and Branc h W-135) conjugate vaccine (MCV4P) TDAP 2007-12-22 Completed University of 00:00:00 [facility] HPV 2007-12-22 Completed University of 00:00:00 [facility] Meningococcal 2007-12-22 Completed University of Polysaccharide 00:00:00 [place] [facility] (groups A, C, Y and Branc h W-135) conjugate vaccine (MCV4P) TDAP 2007-12-22 Completed [facility] of 00:00:00 [facility] HPV 2007-12-22 Completed [facility] of 00:00:00 [facility] Meningococcal 2007-12-22 Completed University of Polysaccharide 00:00:00 [place] [facility] (groups A, C, Y and Branc h W-135) conjugate vaccine (MCV4P) TDAP 2007-12-22 Completed [facility] of 00:00:00 [facility] HPV 2007-12-22 Completed [facility] 00:00:00 [facility] Meningococcal 2007-12-22 Completed University of Polysaccharide 00:00:00 [place] [facility] (groups A, C, Y and Branc h W-135) conjugate vaccine (MCV4P) TDAP 2007-12-22 Completed [facility]00 [facility] HPV 2007-12-22 Completed [facility] 00:[facility]00 [facility] HPV 2007-12-22 Completed [facility] 00:00:00 [facility] Meningococcal 2007-12-22 Completed [facility] Polysaccharide 00:00:00 [place] [facility] (groups A, C, Y and Branc h W-135) conjugate vaccine (MCV4P) TDAP 2007-12-22 Completed [facility] 00:00:00 [facility] HPV 2007-12-22 Completed [facility] 00:00:00 [facility] Meningococcal 2007-12-22 Completed [facility] Polysaccharide 00:00:00 [place] [facility] (groups A, C, Y and Branc h W-135) conjugate vaccine (MCV4P) TDAP 2007-12-22 Completed [facility] 00:00:00 [facility] HPV 2007-12-22 Completed [facility] 00:00:00 [facility] Meningococcal 2007-12-22 Completed [facility] Polysaccharide 00:00:00 [place] [facility] (groups A, C, Y and Branc h W-135) conjugate vaccine (MCV4P) TDAP 2007-12-22 Completed [facility] 00:00:00 [facility] HPV 2007-12-22 Completed [facility] 00:00:00 [facility] Meningococcal 2007-12-22 Completed [facility] Polysaccharide 00:00:00 [place] [facility] (groups A, C, Y and Branc h W-135) conjugate vaccine (MCV4P) TDAP 2007-12-22 Completed [facility] 00:00:00 [facility] HPV 2007-12-22 Completed [facility] 00:00:00 [facility] Meningococcal 2007-12-22 Completed [facility] Polysaccharide 00:00:00 [place] [facility] (groups A, C, Y and Branc h W-135) conjugate vaccine (MCV4P) TDAP 2007-12-22 Completed [facility] 00:00:00 [facility] HPV 2007-12-22 Completed [facility] 00:00:00 [facility] Meningococcal 2007-12-22 Completed [facility] Polysaccharide 00:00:00 [place] [facility] (groups A, C, Y and Branc h W-135) conjugate vaccine (MCV4P) TDAP 2007-12-22 Completed [facility] 00:00:00 [facility] HPV 2007-12-22 Completed [facility] 00:00:00 [facility] Meningococcal 2007-12-22 Completed [facility] Polysaccharide 00:00:00 [place] [facility] (groups A, C, Y and Branc h W-135) conjugate vaccine (MCV4P) TDAP 2007-12-22 Completed [facility] 00:00:00 [facility] HPV 2007-12-22 Completed [facility] 00:00:00 [facility] Meningococcal 2007-12-22 Completed [facility] Polysaccharide 00:00:00 [place] [facility] (groups A, C, Y and Branc h W-135) conjugate vaccine (MCV4P) TDAP 2007-12-22 Completed [facility] 00:00:00 [facility] HPV 2007-12-22 Completed [facility] 00:00:00 [facility] Meningococcal 2007-12-22 Completed [facility] Polysaccharide 00:00:00 [place] [facility] (groups A, C, Y and Branc h W-135) conjugate vaccine (MCV4P) TDAP 2007-12-22 Completed [facility] 00:00:00 [facility] HPV 2007-12-22 Completed [facility] 00:00:00 [facility] Meningococcal 2007-12-22 Completed [facility] Polysaccharide 00:00:00 [place] [facility] (groups A, C, Y and Branc h W-135) conjugate vaccine (MCV4P) TDAP 2007-12-22 Completed [facility] 00:00:00 [facility] IPV 1998-05-03 Completed [facility] 00:00:00 [facility] IPV 1998-05-03 Completed [facility] 00:00:00 [facility] IPV 1998-05-03 Completed [facility] 00:00:00 [facility] IPV 1998-05-03 Completed [facility] 00:00:00 [facility] IPV 1998-05-03 Completed [facility] 00:00:00 [facility] IPV 1998-05-03 Completed [facility] 00:00:00 [facility] IPV 1998-05-03 Completed [facility] 00:00:00 [facility] IPV 1998-05-03 Completed [facility] 00:00:00 [facility] IPV 1998-05-03 Completed [facility] 00:00:00 [facility] IPV 1998-05-03 Completed [facility] 00:00:00 [facility] IPV 1998-05-03 Completed [facility] 00:00:00 [facility] IPV 1998-05-03 Completed [facility] 00:00:00 [facility] IPV 1998-05-03 Completed [facility] 00:00:00 [facility] IPV 1998-05-03 Completed [facility] 00:00:00 [facility] IPV 1998-05-03 Completed [facility] 00:00:00 [facility] IPV 1998-05-03 Completed [facility] 00:00:00 [facility] IPV 1998-05-03 Completed [facility] 00:00:00 [facility] IPV 1998-05-03 Completed [facility] 00:00:00 [facility] IPV 1998-05-03 Completed [facility] 00:00:00 [facility] IPV 1998-05-03 Completed [facility] 00:00:00 [facility] IPV 1998-05-03 Completed [facility] 00:00:00 [facility] IPV 1998-02-13 Completed [facility] 00:00:00 [facility] IPV 1998-02-13 Completed [facility] 00:00:00 [facility] IPV 1998-02-13 Completed [facility] 00:00:00 [facility] IPV 1998-02-13 Completed [facility] 00:00:00 [facility] IPV 1998-02-13 Completed [facility] 00:00:00 [facility] IPV 1998-02-13 Completed [facility] 00:00:00 [facility] IPV 1998-02-13 Completed [facility] 00:00:00 [facility] IPV 1998-02-13 Completed [facility] 00:00:00 [facility] IPV 1998-02-13 Completed [facility] 00:00:00 [facility] IPV 1998-02-13 Completed [facility] 00:00:00 [facility] IPV 1998-02-13 Completed [facility] 00:00:00 [facility] IPV 1998-02-13 Completed [facility] 00:00:00 [facility] IPV 1998-02-13 Completed [facility] 00:00:00 [facility] IPV 1998-02-13 Completed [facility] 00:00:00 [facility] IPV 1998-02-13 Completed [facility] 00:00:00 [facility] IPV 1998-02-13 Completed [facility] 00:00:00 [facility] IPV 1998-02-13 Completed [facility] 00:00:00 [facility] IPV 1998-02-13 Completed [facility] 00:00:00 [facility] IPV 1998-02-13 Completed [facility] 00:00:00 [facility] IPV 1998-02-13 Completed [facility] 00:00:00 [facility] IPV 1998-02-13 Completed [facility] 00:00:00 [facility] DTaP, Unspecified 1997-12-09 Completed [facility] Formulation 00:00:00 [facility] IPV 1997-12-09 Completed [facility] 00:00:00 [facility] DTaP, Unspecified 1997-12-09 Completed [facility] Formulation 00:00:00 [facility] IPV 1997-12-09 Completed [facility] 00:00:00 [facility] DTaP, Unspecified 1997-12-09 Completed [facility] Formulation 00:00:00 [facility] IPV 1997-12-09 Completed [facility] 00:00:00 [facility] DTaP, Unspecified 1997-12-09 Completed [facility] Formulation 00:00:00 [facility] IPV 1997-12-09 Completed [facility] 00:00:00 [facility] DTaP, Unspecified 1997-12-09 Completed [facility] Formulation 00:00:00 [facility] IPV 1997-12-09 Completed [facility] 00:00:00 [facility] DTaP, Unspecified 1997-12-09 Completed [facility] Formulation 00:00:00 [facility] IPV 1997-12-09 Completed [facility] 00:00:00 [facility] DTaP, Unspecified 1997-12-09 Completed [facility] Formulation 00:00:00 [facility] IPV 1997-12-09 Completed [facility] 00:00:00 [facility] DTaP, Unspecified 1997-12-09 Completed [facility] Formulation 00:00:00 [facility] IPV 1997-12-09 Completed [facility] 00:00:00 [facility] DTaP, Unspecified 1997-12-09 Completed [facility] Formulation 00:00:00 [facility] IPV 1997-12-09 Completed [facility] 00:00:00 [facility] DTaP, Unspecified 1997-12-09 Completed [facility] Formulation 00:00:00 [facility] IPV 1997-12-09 Completed [facility] 00:00:00 [facility] DTaP, Unspecified 1997-12-09 Completed [facility] Formulation 00:00:00 [facility] IPV 1997-12-09 Completed [facility] 00:00:00 [facility] DTaP, Unspecified 1997-12-09 Completed [facility] Formulation 00:00:00 [facility] IPV 1997-12-09 Completed [facility] 00:00:00 [facility] DTaP, Unspecified 1997-12-09 Completed [facility] Formulation 00:00:00 [facility] IPV 1997-12-09 Completed [facility] 00:00:00 [facility] DTaP, Unspecified 1997-12-09 Completed [facility] Formulation 00:00:00 [facility] IPV 1997-12-09 Completed [facility] 00:00:00 [facility] DTaP, Unspecified 1997-12-09 Completed [facility] Formulation 00:00:00 [facility] IPV 1997-12-09 Completed [facility] 00:00:00 [facility] DTaP, Unspecified 1997-12-09 Completed [facility] Formulation 00:00:00 [facility] IPV 1997-12-09 Completed [facility] 00:00:00 [facility] DTaP, Unspecified 1997-12-09 Completed [facility] Formulation 00:00:00 [facility] IPV 1997-12-09 Completed [facility] 00:00:00 [facility] DTaP, Unspecified 1997-12-09 Completed [facility] Formulation 00:00:00 [facility] IPV 1997-12-09 Completed [facility] 00:00:00 [facility] DTaP, Unspecified 1997-12-09 Completed [facility] Formulation 00:00:00 [facility] IPV 1997-12-09 Completed [facility] 00:00:00 [facility] DTaP, Unspecified 1997-12-09 Completed [facility] Formulation 00:00:00 [facility] IPV 1997-12-09 Completed [facility] 00:00:00 [facility] DTaP, Unspecified 1997-12-09 Completed [facility] Formulation 00:00:00 [facility] IPV 1997-12-09 Completed [facility] 00:00:00 [facility] MMR 1997-11-08 Completed [facility] 00:00:00 [facility] MMR 1997-11-08 Completed [facility] 00:00:00 [facility] MMR 1997-11-08 Completed [facility] 00:00:00 [facility] MMR 1997-11-08 Completed [facility] 00:00:00 [facility] MMR 1997-11-08 Completed [facility] 00:00:00 [facility] MMR 1997-11-08 Completed [facility] 00:00:00 [facility] MMR 1997-11-08 Completed [facility] 00:00:00 [facility] MMR 1997-11-08 Completed [facility] 00:00:00 [facility] MMR 1997-11-08 Completed [facility] 00:00:00 [facility] MMR 1997-11-08 Completed [facility] 00:00:00 [facility] MMR 1997-11-08 Completed [facility] 00:00:00 [facility] MMR 1997-11-08 Completed [facility] 00:00:00 [facility] MMR 1997-11-08 Completed [facility] 00:00:00 [facility] MMR 1997-11-08 Completed [facility] 00:00:00 [facility] MMR 1997-11-08 Completed [facility] 00:00:00 [facility] MMR 1997-11-08 Completed [facility] 00:00:00 [facility] MMR 1997-11-08 Completed [facility] 00:00:00 [facility] 1997-11-08 Completed [facility] 00:00:00 [facility] MMR 1997-11-08 Completed [facility] 00:00:00 [facility] 1997-11-08 Completed [facility] 00:00:00 [facility] 1997-11-08 Completed [facility] 00:00:00 [facility] DTaP, Unspecified 1996-12-02 Completed [facility] 00:00:00 [facility] Hep B, Adol or Pedi 1996-12-02 Completed Unive rs[facility] of Dosage 00:00:00 [facility] DTaP, Unspecified 1996-12-02 Completed [facility] Formulation 00:00:00 [facility] Hep B, Adol or Pedi 1996-12-02 Completed [facility]ive rs[facility] of Dosage 00:00:00 [facility] DTaP, Unspecified 1996-12-02 Completed [facility] Formulation 00:00:00 [facility] Hep B, Adol or Pedi 1996-12-02 Completed [facility]ive rs[facility] of Dosage 00:00:00 [facility] DTaP, Unspecified 1996-12-02 Completed [facility] Formulation 00:00:00 [facility] Hep B, Adol or Pedi 1996-12-02 Completed [facility]ive rs[facility] of Dosage 00:00:00 [facility] DTaP, Unspecified 1996-12-02 Completed [facility] Formulation 00:00:00 [facility] Hep B, Adol or Pedi 1996-12-02 Completed [facility] rs[facility] of Dosage 00:00:00 [facility] DTaP, Unspecified 1996-12-02 Completed [facility] Formulation 00:00:00 [facility] Hep B, Adol or Pedi 1996-12-02 Completed [facility] rs[facility] of Dosage 00:00:00 [facility] DTaP, Unspecified 1996-12-02 Completed [facility] Formulation 00:00:00 [facility] Hep B, Adol or Pedi 1996-12-02 Completed [facility] rs[facility] of Dosage 00:00:00 [facility] DTaP, Unspecified 1996-12-02 Completed [facility] Formulation 00:00:00 [facility] Hep B, Adol or Pedi 1996-12-02 Completed [facility] rs[facility] of Dosage 00:00:00 [facility] DTaP, Unspecified 1996-12-02 Completed [facility] Formulation 00:00:00 [facility] Hep B, Adol or Pedi 1996-12-02 Completed [facility] rs[facility] of Dosage 00:00:00 [facility] DTaP, Unspecified 1996-12-02 Completed [facility] Formulation 00:00:00 [facility] Hep B, Adol or Pedi 1996-12-02 Completed [facility] rs[facility] of Dosage 00:00:00 [facility] DTaP, Unspecified 1996-12-02 Completed [facility] Formulation 00:00:00 [facility] Hep B, Adol or Pedi 1996-12-02 Completed [facility] rs[facility] of Dosage 00:00:00 [facility] DTaP, Unspecified 1996-12-02 Completed [facility] Formulation 00:00:00 [facility] Hep B, Adol or Pedi 1996-12-02 Completed [facility] rs[facility] of Dosage 00:00:00 [facility] DTaP, Unspecified 1996-12-02 Completed [facility] Formulation 00:00:00 [facility] Hep B, Adol or Pedi 1996-12-02 Completed [facility] rs[facility] of Dosage 00:00:00 [facility] DTaP, Unspecified 1996-12-02 Completed [facility] Formulation 00:00:00 [facility] Hep B, Adol or Pedi 1996-12-02 Completed [facility] rs[facility] of Dosage 00:00:00 [facility] DTaP, Unspecified 1996-12-02 Completed [facility] Formulation 00:00:00 [facility] Hep B, Adol or Pedi 1996-12-02 Completed [facility] rs[facility] of Dosage 00:00:00 [facility] DTaP, Unspecified 1996-12-02 Completed [facility] Formulation 00:00:00 [facility] Hep B, Adol or Pedi 1996-12-02 Completed [facility] rs[facility] of Dosage 00:00:00 [facility] DTaP, Unspecified 1996-12-02 Completed [facility] Formulation 00:00:00 [facility] Hep B, Adol or Pedi 1996-12-02 Completed [facility] rs[facility] of Dosage 00:00:00 [facility] DTaP, Unspecified 1996-12-02 Completed [facility] Formulation 00:00:00 [facility] Hep B, Adol or Pedi 1996-12-02 Completed [facility] rs[facility] of Dosage 00:00:00 [facility] DTaP, Unspecified 1996-12-02 Completed [facility] Formulation 00:00:00 [facility] Hep B, Adol or Pedi 1996-12-02 Completed [facility] rs[facility] of Dosage 00:00:00 [facility] DTaP, Unspecified 1996-12-02 Completed [facility] Formulation 00:00:00 [facility] Hep B, Adol or Pedi 1996-12-02 Completed [facility] rs[facility] of Dosage 00:00:00 [facility] DTaP, Unspecified 1996-12-02 Completed [facility] Formulation 00:00:00 [facility] Hep B, Adol or Pedi 1996-12-02 Completed [facility] Dosage 00:00:00 [facility] Hib-HbOC 1996-12-02 Completed [facility] 00:00:00 [facility] DTaP, Unspecified 1994-11-18 Completed [facility] Formulation 00:00:00 [facility] MMR 1994-11-18 Completed [facility] 00:00:00 [facility] DTaP, Unspecified 1994-11-18 Completed [facility] Formulation 00:00:00 [facility] 1994-11-18 Completed [facility] 00:00:00 [facility] DTaP, Unspecified 1994-11-18 Completed [facility] Formulation 00:00:00 [facility] 1994-11-18 Completed [facility] 00:00:00 [facility] DTaP, Unspecified 1994-11-18 Completed [facility] Formulation 00:00:00 [facility] 1994-11-18 Completed [facility] 00:00:00 [facility] DTaP, Unspecified 1994-11-18 Completed [facility] Formulation 00:00:00 [facility] 1994-11-18 Completed [facility] 00:00:00 [facility] DTaP, Unspecified 1994-11-18 Completed [facility] Formulation 00:00:00 [facility] 1994-11-18 Completed [facility] 00:00:00 [facility] DTaP, Unspecified 1994-11-18 Completed [facility] Formulation 00:00:00 [facility] 1994-11-18 Completed [facility] 00:00:00 [facility] DTaP, Unspecified 1994-11-18 Completed [facility] Formulation 00:00:00 [facility] 1994-11-18 Completed [facility] 00:00:00 [facility] DTaP, Unspecified 1994-11-18 Completed [facility] Formulation 00:00:00 [facility] 1994-11-18 Completed [facility] 00:00:00 [facility] DTaP, Unspecified 1994-11-18 Completed [facility] Formulation 00:00:00 [facility] 1994-11-18 Completed [facility] 00:00:00 [facility] DTaP, Unspecified 1994-11-18 Completed [facility] Formulation 00:00:00 [facility] 1994-11-18 Completed [facility] 00:00:00 [facility] DTaP, Unspecified 1994-11-18 Completed [facility] Formulation 00:00:00 [facility] 1994-11-18 Completed [facility] 00:00:00 [facility] DTaP, Unspecified 1994-11-18 Completed [facility] Formulation 00:00:00 [facility] 1994-11-18 Completed [facility] 00:00:00 [facility] DTaP, Unspecified 1994-11-18 Completed [facility] Formulation 00:00:00 [facility] MMR 1994-11-18 Completed [facility] 00:00:00 [facility] DTaP, Unspecified 1994-11-18 Completed [facility] Formulation 00:00:00 [facility] MMR 1994-11-18 Completed [facility] 00:00:00 [facility] DTaP, Unspecified 1994-11-18 Completed [facility] Formulation 00:00:00 [facility] MMR 1994-11-18 Completed [facility] 00:00:00 [facility] DTaP, Unspecified 1994-11-18 Completed [facility] Formulation 00:00:00 [facility] MMR 1994-11-18 Completed [facility] 00:00:00 [facility] DTaP, Unspecified 1994-11-18 Completed [facility] Formulation 00:00:00 [facility] MMR 1994-11-18 Completed [facility] 00:00:00 [facility] DTaP, Unspecified 1994-11-18 Completed [facility] Formulation 00:00:00 [facility] MMR 1994-11-18 Completed [facility] 00:00:00 [facility] DTaP, Unspecified 1994-11-18 Completed [facility] Formulation 00:00:00 [facility] MMR 1994-11-18 Completed [facility] 00:00:00 [facility] DTaP, Unspecified 1994-11-18 Completed [facility] Formulation 00:00:00 [facility] MMR 1994-11-18 Completed [facility] 00:00:00 [facility] Hib-HbOC 1994-11-18 Completed [facility] 00:00:00 [facility] DTaP, Unspecified 1994-03-29 Completed [facility] Formulation 00:00:00 [facility] Hep B, Adol or Pedi 1994-03-29 Completed [facility] of Dosage 00:00:00 [facility] DTaP, Unspecified 1994-03-29 Completed [facility] Formulation 00:00:00 [facility] Hep B, Adol or Pedi 1994-03-29 Completed [facility] of Dosage 00:00:00 [facility] DTaP, Unspecified 1994-03-29 Completed [facility] Formulation 00:00:00 [facility] Hep B, Adol or Pedi 1994-03-29 Completed [facility] of Dosage 00:00:00 [facility] DTaP, Unspecified 1994-03-29 Completed [facility] Formulation 00:00:00 [facility] Hep B, Adol or Pedi 1994-03-29 Completed [facility] of Dosage 00:00:00 [facility] DTaP, Unspecified 1994-03-29 Completed [facility] Formulation 00:00:00 [facility] Hep B, Adol or Pedi 1994-03-29 Completed [facility] of Dosage 00:00:00 [facility] DTaP, Unspecified 1994-03-29 Completed [facility] Formulation 00:00:00 [facility] Hep B, Adol or Pedi 1994-03-29 Completed [facility] of Dosage 00:00:00 [facility] DTaP, Unspecified 1994-03-29 Completed [facility] Formulation 00:00:00 [facility] Hep B, Adol or Pedi 1994-03-29 Completed [facility] of Dosage 00:00:00 [facility] DTaP, Unspecified 1994-03-29 Completed [facility] Formulation 00:00:00 [facility] Hep B, Adol or Pedi 1994-03-29 Completed [facility] of Dosage 00:00:00 [facility] DTaP, Unspecified 1994-03-29 Completed [facility] Formulation 00:00:00 [facility] Hep B, Adol or Pedi 1994-03-29 Completed [facility] of Dosage 00:00:00 [facility] DTaP, Unspecified 1994-03-29 Completed [facility] Formulation 00:00:00 [facility] Hep B, Adol or Pedi 1994-03-29 Completed [facility] of Dosage 00:00:00 [facility] DTaP, Unspecified 1994-03-29 Completed [facility] Formulation 00:00:00 [facility] Hep B, Adol or Pedi 1994-03-29 Completed [facility] of Dosage 00:00:00 [facility] DTaP, Unspecified 1994-03-29 Completed [facility] Formulation 00:00:00 [facility] Hep B, Adol or Pedi 1994-03-29 Completed [facility] Dosage 00:00:00 [facility] DTaP, Unspecified 1994-03-29 Completed [facility] Formulation 00:00:00 [facility] Hep B, Adol or Pedi 1994-03-29 Completed [facility] of Dosage 00:00:00 [facility] DTaP, Unspecified 1994-03-29 Completed [facility] Formulation 00:00:00 [facility] Hep B, Adol or Pedi 1994-03-29 Completed [facility] of Dosage 00:00:00 [facility] DTaP, Unspecified 1994-03-29 Completed [facility] 00:00:00 [facility] Hep B, Adol or Pedi 1994-03-29 Completed [facility] of Dosage 00:00:00 [facility] DTaP, Unspecified 1994-03-29 Completed Univers ity of Formulation 00:00:00 [facility] Hep B, Adol or Pedi 1994-03-29 Completed Unive rsity of Dosage 00:00:00 [facility] DTaP, Unspecified 1994-03-29 Completed Univers ity of Formulation 00:00:00 [facility] Hep B, Adol or Pedi 1994-03-29 Completed Unive rsity of Dosage 00:00:00 [facility] DTaP, Unspecified 1994-03-29 Completed Univers ity of Formulation 00:00:00 [facility] Hep B, Adol or Pedi 1994-03-29 Completed Unive rsity of Dosage 00:00:00 [facility] DTaP, Unspecified 1994-03-29 Completed Univers ity of Formulation 00:00:00 [facility] Hep B, Adol or Pedi 1994-03-29 Completed Unive rsity of Dosage 00:00:00 [facility] DTaP, Unspecified 1994-03-29 Completed Univers ity of Formulation 00:00:00 [facility] Hep B, Adol or Pedi 1994-03-29 Completed Unive rsity of Dosage 00:00:00 [facility] DTaP, Unspecified 1994-03-29 Completed Univers ity of Formulation 00:00:00 [facility] Hep B, Adol or Pedi 1994-03-29 Completed Unive rsity of Dosage 00:00:00 [facility] Hib-HbOC 1994-03-29 Completed University of 00:00:00 [facility] DTaP, Unspecified 1993 Completed Univers ity of Formulation 00:00:00 [facility] DTaP, Unspecified 1993 Completed Univers ity of Formulation 00:00:00 [facility] DTaP, Unspecified 1993 Completed Univers ity of Formulation 00:00:00 [facility] DTaP, Unspecified 1993 Completed Univers ity of Formulation 00:00:00 [facility] DTaP, Unspecified 1993 Completed Univers ity of Formulation 00:00:00 [facility] DTaP, Unspecified 1993 Completed Univers ity of Formulation 00:00:00 [facility] DTaP, Unspecified 1993 Completed Univers ity of Formulation 00:00:00 [facility] DTaP, Unspecified 1993 Completed Univers ity of Formulation 00:00:00 [facility] DTaP, Unspecified 1993 Completed Univers ity of Formulation 00:00:00 [facility] DTaP, Unspecified 1993 Completed Univers ity of Formulation 00:00:00 [facility] DTaP, Unspecified 1993 Completed Univers ity of Formulation 00:00:00 [facility] DTaP, Unspecified 1993 Completed Univers ity of Formulation 00:00:00 [facility] DTaP, Unspecified 1993 Completed Univers ity of Formulation 00:00:00 [facility] DTaP, Unspecified 1993 Completed Univers ity of Formulation 00:00:00 [facility] DTaP, Unspecified 1993 Completed Univers ity of Formulation 00:00:00 [facility] DTaP, Unspecified 1993 Completed Univers ity of Formulation 00:00:00 [facility] DTaP, Unspecified 1993 Completed Univers ity of Formulation 00:00:00 [facility] DTaP, Unspecified 1993 Completed Univers ity of Formulation 00:00:00 [facility] DTaP, Unspecified 1993 Completed Univers ity of Formulation 00:00:00 [facility] DTaP, Unspecified 1993 Completed Univers ity of Formulation 00:00:00 [facility] DTaP, Unspecified 1993 Completed Univers ity of Formulation 00:00:00 [facility] Hep B, Adol or Pedi 1993 Completed Unive rsity of Dosage 00:00:00 [facility] Hep B, Adol or Pedi 1993 Completed Unive rsity of Dosage 00:00:00 [facility] Hep B, Adol or Pedi 1993 Completed Unive rsity of Dosage 00:00:00 [facility] Hep B, Adol or Pedi 1993 Completed Unive rsity of Dosage 00:00:00 [facility] Hep B, Adol or Pedi 1993 Completed Unive rsity of Dosage 00:00:00 [facility] Hep B, Adol or Pedi 1993 Completed Unive rsity of Dosage 00:00:00 [facility] Hep B, Adol or Pedi 1993 Completed Unive rsity of Dosage 00:00:00 [facility] Hep B, Adol or Pedi 1993 Completed Unive rsity of Dosage 00:00:00 [facility] Hep B, Adol or Pedi 1993 Completed Unive rsity of Dosage 00:00:00 [facility] Hep B, Adol or Pedi 1993 Completed Unive rsity of Dosage 00:00:00 [facility] Hep B, Adol or Pedi 1993 Completed Unive rsity of Dosage 00:00:00 [facility] Hep B, Adol or Pedi 1993 Completed Unive rsity of Dosage 00:00:00 [facility] Hep B, Adol or Pedi 1993 Completed Unive rsity of Dosage 00:00:00 [facility] Hep B, Adol or Pedi 1993 Completed Unive rsity of Dosage 00:00:00 [facility] Hep B, Adol or Pedi 1993 Completed Unive rsity of Dosage 00:00:00 [facility] Hep B, Adol or Pedi 1993 Completed Unive rsity of Dosage 00:00:00 [facility] Hep B, Adol or Pedi 1993 Completed Unive rsity of Dosage 00:00:00 [facility] Hep B, Adol or Pedi 1993 Completed Unive rsity of Dosage 00:00:00 [facility] Hep B, Adol or Pedi 1993 Completed Unive rsity of Dosage 00:00:00 [facility] Hep B, Adol or Pedi 1993 Completed Unive rsity of Dosage 00:00:00 [facility] Hep B, Adol or Pedi 1993 Completed Unive rsity of Dosage 00:00:00 [facility] Hib-HbOC 1993 Completed University of 00:00:00 [facility] Vital Signs Vital Name Observation Time Observation Value Comments Source Systolic blood 2022-08-12 18:05:00 119 mm[Hg] Univer sity of pressure [facility] Diastolic blood 2022-08-12 18:05:00 82 mm[Hg] Unive rsity of pressure [facility] Heart rate 2022-08-12 18:05:00 84 /min Universi ty of [facility] Body temperature 2022-08-12 18:05:00 36.89 Neisha Univ ersity of [facility] Respiratory rate 2022-08-12 18:05:00 16 /min Univ ersity of [facility] Body height 2022-08-12 18:05:00 156.2 cm Universi ty of [facility] Body weight 2022-08-12 18:05:00 96.435 kg Universi ty of [facility] BMI 2022-08-12 18:05:00 39.52 kg/m2 Universi ty of [facility] Oxygen saturation in 2022-08-12 18:05:00 97 /min [facility] Arterial blood by [facility] Pulse oximetry Branch Systolic blood 2022-07-15 18:00:00 118 mm[Hg] Univer sity of pressure [facility] Diastolic blood 2022-07-15 18:00:00 71 mm[Hg] Unive rsity of pressure [facility] Heart rate 2022-07-15 18:00:00 87 /min Universi ty of [facility] Body temperature 2022-07-15 18:00:00 36.94 Neisha Univ ersity of [facility] Respiratory rate 2022-07-15 18:00:00 16 /min Univ ersity of [facility] Body height 2022-07-15 18:00:00 156.2 cm Universi ty of [facility] Body weight 2022-07-15 18:00:00 93.577 kg Universi ty of [facility] BMI 2022-07-15 18:00:00 38.35 kg/m2 Universi ty of [facility] Oxygen saturation in 2022-07-15 18:00:00 99 /min University of Arterial blood by [facility] Pulse oximetry Branch Systolic blood 2022-06-12 19:23:00 109 mm[Hg] Univer sity of pressure [facility] Diastolic blood 2022-06-12 19:23:00 69 mm[Hg] Unive rsity of pressure [facility] Heart rate 2022-06-12 19:23:00 67 /min Universi ty of [facility] Body temperature 2022-06-12 19:23:00 36.72 Neisha [address] [facility] Respiratory rate 2022-06-12 19:23:00 18 /min Univ ersity of [facility] Body height 2022-06-12 19:23:00 156.2 cm Universi ty of [facility] Body weight 2022-06-12 19:23:00 92.08 kg Universi ty of [facility] BMI 2022-06-12 19:23:00 37.74 kg/m2 Universi ty of [facility] Systolic blood 2022-05-15 19:08:00 101 mm[Hg] Univer sity of pressure [facility] Diastolic blood 2022-05-15 19:08:00 62 mm[Hg] Unive rsity of pressure [facility] Heart rate 2022-05-15 19:08:00 72 /min Universi ty of [facility] Body temperature 2022-05-15 19:08:00 36.72 Neisha Univ ersity of [facility] Respiratory rate 2022-05-15 19:08:00 17 /min Univ ersity of [facility] Body height 2022-05-15 19:08:00 152.4 cm Universi ty of [facility] Body weight 2022-05-15 19:08:00 92.488 kg Universi ty of [facility] BMI 2022-05-15 19:08:00 39.82 kg/m2 Universi ty of [facility] Systolic blood 2022-04-18 20:38:00 124 mm[Hg] Univer sity of pressure [facility] Diastolic blood 2022-04-18 20:38:00 65 mm[Hg] Unive rsity of pressure [facility] Heart rate 2022-04-18 20:38:00 66 /min Universi ty of [facility] Body temperature 2022-04-18 20:38:00 36.94 Neisha [facility] ersity of [facility] Respiratory rate 2022-04-18 20:38:00 17 /min [facility] ersity of [facility] Body height 2022-04-18 20:38:00 152.4 cm Universi ty of [facility] Body weight 2022-04-18 20:38:00 91.899 kg Universi ty of [facility] BMI 2022-04-18 20:38:00 39.57 kg/m2 Universi ty of [facility] Systolic blood 2022-01-31 09:00:00 116 mm[Hg] Univer sity of pressure [facility] Diastolic blood 2022-01-31 09:00:00 72 mm[Hg] Unive rsity of [facility] Heart rate 2022-01-31 09:00:00 76 /min Universi ty of [facility] Respiratory rate 2022-01-31 09:00:00 16 /min [facility] Oxygen saturation in 2022-01-31 09:00:00 99 /min [facility] Arterial blood by [facility] Pulse oximetry [place] Body temperature 2022-01-31 08:10:00 37.22 Neisha [facility] ersity of [facility] Body height 2022-01-31 08:10:00 154.9 cm Universi ty of [facility] Body weight 2022-01-31 08:10:00 90.719 kg Universi ty of [facility] BMI 2022-01-31 08:10:00 37.79 kg/m2 Universi ty [facility] Procedures Procedure Date / Time Performed Performing Clinician Barbara e 2 HR GLUCOSE TOLERANCE 2022-08-16 15:39:00 [facility] GLUCOSE TOLERANCE 2022-08-16 15:39:00 [facility] GLUCOSE TOLERANCE 2022-08-16 13:41:00 [facility] FAST[facility] 2022-08-16 12:35:00 Trell Aguilar [facility] ty [facility] CBC WITH DIFF 2022-08-16 12:35:00 Trell Aguilar [facility] HB ABO GROUPING 2022-08-16 12:35:00 Trell Aguilar [facility] 3 HR GLUCOSE TOLERANCE 2022-08-16 12:35:00 [facility] [place] PANEL [facility] HIV 1/2 AG-AB WITH 2022-08-16 12:35:00 Trell Aguilare rsity of [place] REFLEX [facility] ADC OR TIFFANIE ONLY - 2022-08-16 12:35:00 Trell [facility] POCT URINALYSIS W/O 2022-08-12 00:00:00 Trell Aguilar [facility] POCT URINALYSIS W/O 2022-07-15 00:00:00 Trell Aguilar [facility] [place] POCT URINALYSIS W/O 2022-06-12 00:00:00 Trell Aguilar [facility] [place] SCANNED LAB RESULTS 2022-05-22 06:01:00 Doctor Unassigned, No Un iversity of [facility] POCT URINALYSIS W/O 2022-05-15 00:00:00 Trell Aguilar ersity of [facility] POCT TEST 2022-04-18 20:59:00 Darlin Mazariegos Uni versity of [facility] POCT URINALYSIS W/O 2022-04-18 20:59:00 Darlin Mazariegos Uni versity of [facility] [place] REPORT OF 2022-04-18 06:01:00 Doctor Unassigned, No Un iversity of [facility] POCT TEST 2022-04-18 00:00:00 Darlin Mazariegos Uni versity of [facility] POCT URINALYSIS W/O 2022-04-18 00:00:00 Darlin Mazariegos Uni versity of [facility] [place] POCT TEST 2022-01-31 08:29:00 Gary Kincaid [facility] LIPASE 2022-01-31 08:24:00 Gary Kincaid [facility] COMP. METABOLIC PANEL 2022-01-31 08:24:00 Gary Kincaid [facility] ([id number]) Medical [place] CBC WITH DIFF 2022-01-31 08:24:00 Gary Kincaid [facility] URINALYSIS 2022-01-31 08:24:00 Gary Kincaid [facility] NOTICE OF PRIVACY 2022-01-31 07:55:35 Doctor Unassigned, No [facility] PRACTICES Name [facility] CONSENT/REFUSAL FOR 2022-01-31 07:55:15 [facility] Name [facility] TREATMENT SCANNED LAB RESULTS 2020-05-22 06:01:00 Doctor Unassigned, No [facility] [place] Name [facility] Encounters Start End Encounter Admission Attending Care Care Encounter Source Date/Time Date/Time Type Type Clinicians Facility Department ID 2022-09-25 2022-09-25 Outpatient R TRELL AGUILAR [facility] B [id number] Univers 11:30:00 11:30:[address] [facility] 2022-09-16 2022-09-16 Telephone Shruthi [facility] 1.2.840.11 [id number] Univers 00:00:00 00:00:00 Trell RAYMOND 350.1.13.10 it y of WOMEN'S 4.2.7.2.686 [facility] [id number] [address] 2022-09-09 2022-09-09 Outpatient R TRELL AGUILAR [facility] B [id number] Univers 13:00:00 13:00:[address] [facility] 2022-08-17 2022-08-17 Case Shruthi [facility] 1.2.840.114 [id number] Univers 00:00:00 00:00:00 Management Trell RAYMOND 350.1.13.10 ity of WOMEN'S 4.2.7.2.686 [facility] [id number] [address] 2022-08-16 2022-08-16 Tai Chi Instructor Lab, Kali - [facility] 1.2.840.1 [id number] Univers 07:30:00 08:21:51 Visit Trell Aguilar [facility] 350.1.13.1 0 [place]y of [place] 4.2.7.2.686 Juan F as YOANNA?BLEA [id number] [address] 2022-08-16 2022-08-16 Outpatient R TRELL AGUILAR [facility] B [id number] Univers 07:30:00 07:30:00 TRELL AGUILAR [facility] 2022-08-16 2022-08-16 Letter Lab, Kali [facility] 1.2.840.114 [id number] Univers 00:00:00 00:00:00 (Out) Db HEALTH 350.1.13.10 it y of [place] 4.2.7.2.686 Juan F as YOANNA?BLEA [id number] [address] 2022-08-16 2022-08-16 [facility] 1.2.550.574 [id number] Univers 00:00:00 00:00:00 Darlin Rehman THEATRICAL PERFORMER 350.1.13.10 ity of [facility] 4.2.7.2.686 Juan F as MATERNAL [id number] Med ical & CHILD 107 [facility] 2022-08-16 2022-08-16 Refill Shruthi [facility] 1.2.840.114 [id number] Univers 00:00:00 00:00:00 Trell MANDI 350.1.13.10 it [place] [id number] [address] 2022-08-12 2022-08-12 Outpatient R TRELL AGUILAR [facility] B [id number] Univers 13:15:00 13:24:53 [facility] 2022-08-12 2022-08-12 [facility]ine [facility] 1.2.840.114 [id number] Univers 13:15:00 13:24:53 Trell RAYMOND 350.1.13.10 i ty of Visit [place]2.[place] [id number] [address] 2022-07-15 2022-07-15 Outpatient P SHLOMO [facility] [id number] Univers 15:00:00 16:16:[address] [facility] 2022-07-15 2022-07-15 Tai Chi Instructor Ultrasound, [facility] 1.2 .840.114 [id number] Univers 15:00:00 16:00:00 Visit Trell Aguilar THEATRICAL PERFORMER 350.1.13.1 0 ity of Nate Sigala [facility] 4.2.7.2.686 [place] MATERNAL [id number] [facility] ical & CHILD [address] [place] [address] 2022-07-15 2022-07-15 Routine [facility] 1.2.840.114 [id number] Univers 13:00:00 13:12:52 Yarelisteven [place] 350.1.13.10 i ty of Visit [place] [id number] [address] 2022-07-15 2022-07-15 Abstract [facility] 1.2.840.114 [id number] Univers 00:00:00 00:00:00 Darlin Rehman THEATRICAL PERFORMER 350.1.13.10 ity of [facility] 4.2.7.2.686 Juan F as MATERNAL [id number] [facility] ical & CHILD [address] [place] [address] 2022-06-12 2022-06-12 Outpatient R TRELL AGUILAR [facility] B [id number] Univers 13:15:00 13:50:29 [facility] 2022-06-12 2022-06-12 Routine [facility] 1.2.840.114 [id number] Univers 13:15:00 13:50:29 Yarelisteven [place] 350.1.13.10 i ty of [place] [id number] [address] 2022-06-05 2022-06-05 Telephone Jim THOM ALEX 1.2.840.114 [id number] Univers 00:00:00 00:00:00 Tootie RAYMOND 350.1.13.10 it y [place].2.686 [place] [facility] [id number] [address] 2022-05-22 2022-05-22 Tai Chi Instructor Lab, Ang - Db [facility] 1.2.840.1 14 [id number] Univers 07:30:00 07:45:00 Visit Trell Aguilar [facility] 350.1.13.1 0 ity of [place] 4.2.7.2.686 Juan F as YOANNA?BLEA [id number] [address] MEDICAL OFFICE BUILDING 2022-05-22 2022-05-22 Outpatient R TRELL AGUILAR [facility] B [id number] Univers 07:30:00 07:30:[address] [facility] 2022-05-22 2022-05-22 Telephone Shruthi [facility] 1.2.840.11 [id number] Univers 00:00:00 00:00:00 Trell RAYMOND 350.1.13.10 it [place] [facility] [id number] [address] 2022-05-22 2022-05-22 Orders Doctor KATHE 1.2.840.114 [id number] Univers 00:00:00 00:00:00 Only Unassigned, SHAHEEN 350.1.13.10 ity of [place] [facility] 4.2.7.2.686 Juan F as [id number] [place] [address] Branch 2022-05-16 2022-05-16 Outpatient R YAIR [facility] [id number] Univers 14:00:00 14:00:00 DARLIN neal o f [facility] 2022-05-15 2022-05-15 Outpatient R TRELL AGUILAR [facility] B [id number] Univers 13:15:00 13:42:17 TRITRELL GOLDMAN ity of [facility] 2022-05-15 2022-05-15 Initial Shruthi [facility] 1.2.840.114 [id number] Univers 13:15:00 13:42:17 Trell RAYMOND 350.1.13.10 i ty of [place] [id number] [address] 2022-04-30 2022-04-30 Abstract Yair [facility] 1.2.840.114 [id number] Univers 00:00:00 00:00:00 Darlin Rehman THEATRICAL PERFORMER 350.1.13.10 ity of REGIONAL 4.2.7.2.686 Juan F as MATERNAL [id number] [facility] ical & CHILD [address] [place] [address] 2022-04-25 2022-04-25 Tai Chi Instructor Ultrasound, [facility] 1.2 .840.114 [id number] Univers 14:45:00 15:15:00 Visit Alba Cobian THEATRICAL PERFORMER 350.1.13.10 ity of REGIONAL 4.2.7.2.686 Juan F as MATERNAL [id number] [facility] ical & CHILD [address] [place] [address] 2022-04-25 2022-04-25 Outpatient P ALBA COBIAN [facility] [id number] Univers 14:45:00 15:06:[address] [facility] 2022-04-24 2022-04-24 Outpatient R YAIR [facility] [id number] Univers 08:15:00 08:15:00 DARLIN villanuevay o f [facility] 2022-04-19 2022-04-19 Telephone Yair [facility] 1.2.840.114 [id number] Univers 00:00:00 00:00:00 Darlin Rehman THEATRICAL PERFORMER 350.1.13.10 ity of [facility] 4.2.7.2.686 Juan F as MATERNAL [id number] [facility] ical & CHILD [address] [place] [address] 2022-04-19 2022-04-19 Xenia Cheema [facility] 1.2.840.114 [id number] Univers 00:00:00 00:00:00 Andrés Conte THEATRICAL PERFORMER 350.1.13.10 i ty of REGIONAL 4.2.7.2.686 Juan F as MATERNAL [id number] [facility] ical & CHILD [address] [place] [address] 2022-04-18 2022-04-18 Outpatient R [facility] [id number] Univers 14:15:00 15:12:42 DARLIN ity o f [facility] 2022-04-18 2022-04-18 Initial [facility] 1.2.251.194 [id number] Univers 14:15:00 15:12:42 Darlin Rehman THEATRICAL PERFORMER 350.1.13.10 ity of Visit [facility] 4.2.7.2.686 Juan F as MATERNAL [id number] [facility] ical & CHILD [address] [place] [address] 2022-04-18 2022-04-18 Orders Doctor ARCHULETA 1.2.840.114 [id number] Univers 00:00:00 00:00:00 Only Unassigned, SHAHEEN 350.1.13.10 ity of [place] [facility] 4.2.7.2.686 Juan F as [id number] [address] 2022-04-16 2022-04-16 Outpatient R TRELL AGUILAR [facility] B [id number] Univers 11:30:00 11:30:00 TRELL AGUILAR [facility] 2022-04-02 2022-04-02 Outpatient R TRELL AGUILAR [facility] B [id number] Univers 11:30:00 11:30:00 TRELL AGUILAR luisana [facility] 2022-04-02 2022-04-02 Outpatient R TRELL AGUILAR [facility] B [id number] Univers 11:00:00 11:00:00 TRELL AGUILAR [facility] 2022-01-31 2022-01-31 Emergency X CLAY INPRASHANTH ERT [id number] Univers 03:02:00 04:40:00 GARY [facility] 2022-01-31 2022-01-31 Emergency Yarima, [facility] 1.2.971.629 [id number] Univers 03:02:00 04:40:00 Gary GANDHI 350.1.13.10 ity of [place] 4.2.7.2.686 [place] [facility] [id number] [facility] [address] 2022-01-31 2022-01-31 Orders Doctor KATHE 1.2.840.114 [id number] Univers 00:00:00 00:00:00 Only Unassigned, SHAHEEN 350.1.13.10 ity of [place] [facility] 4.2.7.2.686 Juan F as [id number] [facility] [address] 2021-11-19 2021-11-19 Outpatient Kindra HO [facility] [id number] Univers 11:45:00 11:45:00 DARREL [facility] 2021-05-08 2021-05-08 Letter Doctor KATHE 1.2.840.114 [id number] Univers 00:00:00 00:00:00 (Out) Unassigned, SHAHEEN 350.1.13.10 ity of [place] [facility] 4.2.7.2.686 Juan F as [id number] [facility] [address] 2020-05-22 2020-05-22 Orders Doctor KATHE 1.2.840.114 [id number] Univers 00:00:00 00:00:00 Only Unassigned, SHAHEEN 350.1.13.10 ity of [place] [facility] 4.2.7.2.686 Juan F as [id number] [facility] [address] 2019-07-20 2019-07-20 Outpatient R HARRY CONLEY [facility] [id number] Univers 13:00:00 13:00:00 [facility] Results Test Description Test Time Test Comments Results Result Comments Source KEYONNA OR TIFFANIE VARGAS - RPR 2022-08-17 08:38:17 Test Item Value Reference Range Interpretation Comme nts RPR (Qualitative) (test code = 20447-3) Nonreactive Nonreactive Lab Interpretation (test code = 04243-8) [facility] [id number] 20:46:06 Test Item Value Reference Range Interpretation Comments HIV 0.08 Negative Semi-quantitative (test code = 69397-5) GADIEL (test code = Non-reactive for HIV-1 GADIEL) antigen and HIV-1/HIV-2 antibodies. ?No laboratory evidence of HIV infection. ?Repeat in 2-4 weeks if acute HIV infection is suspected. [facility] [id number] 20:46:06 Test Item Value Reference Range Interpretation Comments HIV 0.08 Negative Semi-quantitative (test code = 07307-7) GADIEL (test code = Non-reactive for HIV-1 GADIEL) antigen and HIV-1/HIV-2 antibodies. ?No laboratory evidence of HIV infection. ?Repeat in 2-4 weeks if acute HIV infection is suspected. [facility] HR GLUCOSE TOLERANCE [id number] 20:21:43 Test Item Value Reference Range Interpretation Comments GLUC 1 HR (test code = 6578413073) 129 mg/dL 120-170 Lab Interpretation (test code = Normal 28379-0) [facility] HR GLUCOSE TOLERANCE [id number] 20:21:43 Test Item Value Reference Range Interpretation Comments GLUC 1 HR (test code = 6739124230) 129 mg/dL 120-170 Lab Interpretation (test code = Normal 91769-3) [facility] HR GLUCOSE TOLERANCE [id number] 20:19:40 Test Item Value Reference Range Interpretation Comments GLUC 2 HR (test code = 8698557286) 113 mg/dL 70-120 Lab Interpretation (test code = Normal 53699-2) [facility] HR GLUCOSE TOLERANCE [id number] 20:19:40 Test Item Value Reference Range Interpretation Comments GLUC 2 HR (test code = 6849616707) 113 mg/dL 70-120 Lab Interpretation (test code = Normal 81661-0) [facility] HR GLUCOSE TOLERANCE [id number] 20:14:04 Test Item Value Reference Range Interpretation Comments GLUC 3 HR (test code = 7714355370) 98 mg/dL 70-110 Lab Interpretation (test code = Normal 52372-3) [facility] HR GLUCOSE TOLERANCE [id number] 20:14:04 Test Item Value Reference Range Interpretation Comments GLUC 3 HR (test code = 8668088362) 98 mg/dL 70-110 Lab Interpretation (test code = Normal 69564-8) [facility] [id number] 20:07:42 Test Item Value Reference Range Interpretation Comments GLU FASTNG (test code = 0404784552) 85 mg/dL 70-110 Lab Interpretation (test code = Normal 99958-7) [facility] [id number] 20:07:42 Test Item Value Reference Range Interpretation Comments GLU FASTNG (test code = 5245361114) 85 mg/dL 70-110 Lab Interpretation (test code = Normal 82599-8) [facility] [id number] 19:46:36 Test Item Value Reference Range Interpretation Comments WBC (test code = 6.98 See_Comment [Automated 4290-2) message] The sy stem which generated this result transmitted reference range : 4.30 - 11.10 10*3/?L. The reference range was not used to interpret this result as normal/abnormal . RBC (test code = 2.91 See_Comment L [Automated 179-8) message] The sy stem which generated this result transmitted reference range : 3.93 - 5.25 10*6/?L. The reference range was not used to interpret this result as normal/abnormal . HGB (test code = 8.4 g/dL 11.6-15.0 L 718-7) HCT (test code = 25.8 % 35.7-45.2 L 4544-3) MCV (test code = 88.7 fL 80.6-95.5 787-2) MCH (test code = 28.9 pg 25.9-32.8 785-6) MCHC (test code = 32.6 g/dL 31.6-35.1 786-4) RDW-SD (test code = 48.7 fL 39.0-49.9 83832-7) RDW-CV (test code = 15.2 % 12.0-15.5 788-0) PLT (test code = 177 See_Comment [Automated 747-3) message] The sy stem which generated this result transmitted reference range : 166 - 358 10*3/ ?L. The reference r unique was not used to interpret this result as normal/abnormal . MPV (test code = 11.4 fL 9.5-12.9 79611-1) NRBC/100 WBC (test 0.0 See_Comment [Automat ed code = 3486585508) message] The system which generated this result transmitted reference range : 0.0 - 10.0 /100 WBCs. The refer ence range was not u sed to interpret th is result as normal/abnormal . NRBC x10^3 (test code See_Comment [Auto mated = 8905908684) message] The s ystem which generated this result transmitted reference range : 10*3/?L. The reference range was not used to interpret this result as normal/abnormal . GRAN MAT (NEUT) % 77.3 % (test code = 770-8) IMM GRAN % (test code 1.00 % = 9605587412) LYMPH % (test code = 13.8 % 736-9) MONO % (test code = 6.9 % 5905-5) EOS % (test code = 0.7 % 713-8) BASO % (test code = 0.3 % 706-2) GRAN MAT x10^3(ANC) 5.40 10*3/uL 1.88-7.09 (test code = 5500035644) IMM GRAN x10^3 (test 0.07 10*3/uL 0.00-0.06 H code = 1425833145) LYMPH x10^3 (test code 0.96 10*3/uL 1.32-3.29 L = 731-0) MONO x10^3 (test code 0.48 10*3/uL 0.33-0.92 = 742-7) EOS x10^3 (test code = 0.05 10*3/uL 0.03-0.39 711-2) BASO x10^3 (test code 0.01-0.07 = 704-7) Lab Interpretation Abnormal (test code = 26205-2) [facility] WITH [id number] 19:46:36 Test Item Value Reference Range Interpretation Comments WBC (test code = 6.98 See_Comment [Automated 6690-2) message] The sy stem which generated this result transmitted reference range : 4.30 - 11.10 10*3/?L. The reference range was not used to interpret this result as normal/abnormal . RBC (test code = 2.91 See_Comment L [Automated 789-8) message] The sy stem which generated this result transmitted reference range : 3.93 - 5.25 10*6/?L. The reference range was not used to interpret this result as normal/abnormal . HGB (test code = 8.4 g/dL 11.6-15.0 L 718-7) HCT (test code = 25.8 % 35.7-45.2 L 4544-3) MCV (test code = 88.7 fL 80.6-95.5 787-2) MCH (test code = 28.9 pg 25.9-32.8 785-6) MCHC (test code = 32.6 g/dL 31.6-35.1 786-4) RDW-SD (test code = 48.7 fL 39.0-49.9 82428-8) RDW-CV (test code = 15.2 % 12.0-15.5 788-0) PLT (test code = 177 See_Comment [Automated 777-3) message] The sy stem which generated this result transmitted reference range : 166 - 358 10*3/ ?L. The reference r unique was not used to interpret this result as normal/abnormal . MPV (test code = 11.4 fL 9.5-12.9 23226-3) NRBC/100 WBC (test 0.0 See_Comment [Automat ed code = 1934635157) message] The system which generated this result transmitted reference range : 0.0 - 10.0 /100 WBCs. The refer ence range was not u sed to interpret th is result as normal/abnormal . NRBC x10^3 (test code See_Comment [Auto mated = 9567451948) message] The s ystem which generated this result transmitted reference range : 10*3/?L. The reference range was not used to interpret this result as normal/abnormal . GRAN MAT (NEUT) % 77.3 % (test code = 770-8) IMM GRAN % (test code 1.00 % = 3136328384) LYMPH % (test code = 13.8 % 736-9) MONO % (test code = 6.9 % 5905-5) EOS % (test code = 0.7 % 713-8) BASO % (test code = 0.3 % 706-2) GRAN MAT x10^3(ANC) 5.40 10*3/uL 1.88-7.09 (test code = 1729155502) IMM GRAN x10^3 (test 0.07 10*3/uL 0.00-0.06 H code = 9458500656) LYMPH x10^3 (test code 0.96 10*3/uL 1.32-3.29 L = 731-0) MONO x10^3 (test code 0.48 10*3/uL 0.33-0.92 = 742-7) EOS x10^3 (test code = 0.05 10*3/uL 0.03-0.39 711-2) BASO x10^3 (test code 0.01-0.07 = 704-7) Lab Interpretation Abnormal (test code = 74912-1) [facility] WORKUP, BLOOD [id number] 12:35:00 Test Item Value Reference Range Interpretation Comments ABO & RH (test code = 20) O Positive IAT (test code = 1185) Negative [facility] WORKUP, BLOOD [id number] 12:35:00 Test Item Value Reference Range Interpretation Comments ABO & RH (test code = 20) O Positive IAT (test code = 1185) [facility] [id number] 18:11:00 Test Item Value Reference Range Interpretation Comments POCT PH U (test code = 3254) n/a 5-8 POCT U LEUK EST (test code = n/a Negative - Negative 3263) POCT U NIT (test code = 3262) n/a Negative - Negative POCT U PROT (test code = 3259) trace Negative - Negative POCT U GLU (test code = 3256) negative Negative - Negative POCT U KETONE (test code = 3258) n/a Negative - Negative POCT U BLD (test code = 3257) n/a Negative - Negative [facility] URINALYSIS W/O SPECIFIC [id number] 18:03:00 Test Item Value Reference Range Interpretation Comments POCT PH U (test code = 3254) n/a 5-8 POCT U LEUK EST (test code = n/a Negative - Negative 3263) POCT U NIT (test code = 3262) n/a Negative - Negative POCT U PROT (test code = 3259) negative Negative - Negative POCT U GLU (test code = 3256) negative Negative - Negative POCT U KETONE (test code = 3258) n/a Negative - Negative POCT U BLD (test code = 3257) n/a Negative - Negative [facility] URINALYSIS W/O SPECIFIC [id number] 19:25:00 Test Item Value Reference Range Interpretation Comments POCT PH U (test code = 3254) N/A 5-8 POCT U LEUK EST (test code = N/A Negative - Negative 3263) POCT U NIT (test code = 3262) N/A Negative - Negative POCT U PROT (test code = 3259) Negative Negative - Negative POCT U GLU (test code = 3256) Negative Negative - Negative POCT U KETONE (test code = 3258) N/A Negative - Negative POCT U BLD (test code = 3257) N/A Negative - Negative [facility] URINALYSIS W/O SPECIFIC [id number] 19:08:00 Test Item Value Reference Range Interpretation Comments POCT PH U (test code = 3254) n/a 5-8 POCT U LEUK EST (test code = n/a Negative - Negative 3263) POCT U NIT (test code = 3262) n/a Negative - Negative POCT U PROT (test code = 3259) negative Negative - Negative POCT U GLU (test code = 3256) negative Negative - Negative POCT U KETONE (test code = 3258) n/a Negative - Negative POCT U BLD (test code = 3257) n/a Negative - Negative [facility] [id number] 20:59:00 Test Item Value Reference Range Interpretation Comments POCT PREG (test code = 1605) Positive On board controls acceptable with C Yes Line (test code = 3574) POCT PREG LOT # (test code = 3575) POCT PREG TEST DATE (test code = 3576) [facility] URINALYSIS W/O SPECIFIC [id number] 20:59:00 Test Item Value Reference Range Interpretation Comments POCT PH U (test code = 3254) * 5-8 POCT U LEUK EST (test code = 3263) * Negative - Negative POCT U NIT (test code = 3262) * Negative - Negative POCT U PROT (test code = 3259) * Negative - Negative POCT U GLU (test code = 3256) * Negative - Negative POCT U KETONE (test code = 3258) * Negative - Negative POCT U BLD (test code = 3257) * Negative - Negative [facility] [id number] 20:59:00 Test Item Value Reference Range Interpretation Comments POCT PREG (test code = 1605) Positive On board controls acceptable with C Yes Line (test code = 3574) POCT PREG LOT # (test code = 3575) POCT PREG TEST DATE (test code = 3576) [facility] URINALYSIS W/O SPECIFIC [id number] 20:59:00 Test Item Value Reference Range Interpretation Comments POCT PH U (test code = 3254) * 5-8 POCT U LEUK EST (test code = 3263) * Negative - Negative POCT U NIT (test code = 3262) * Negative - Negative POCT U PROT (test code = 3259) * Negative - Negative POCT U GLU (test code = 3256) * Negative - Negative POCT U KETONE (test code = 3258) * Negative - Negative POCT U BLD (test code = 3257) * Negative - Negative [facility] [id number] 20:59:00 Test Item Value Reference Range Interpretation Comments POCT PREG (test code = 1605) Positive On board controls acceptable with C Yes Line (test code = 3574) POCT PREG LOT # (test code = 3575) POCT PREG TEST DATE (test code = 3576) [facility] URINALYSIS W/O SPECIFIC [id number] 20:59:00 Test Item Value Reference Range Interpretation Comments POCT PH U (test code = 3254) * 5-8 POCT U LEUK EST (test code = 3263) * Negative - Negative POCT U NIT (test code = 3262) * Negative - Negative POCT U PROT (test code = 3259) * Negative - Negative POCT U GLU (test code = 3256) * Negative - Negative POCT U KETONE (test code = 3258) * Negative - Negative POCT U BLD (test code = 3257) * Negative - Negative [facility] URINALYSIS W/O SPECIFIC [id number] 20:41:00 Test Item Value Reference Range Interpretation Comments POCT PH U (test code = 3254) 6 mg/dl 5-8 POCT U LEUK EST (test code = negative Negative - Negative 3263) POCT U NIT (test code = 3262) negative Negative - Negative POCT U PROT (test code = 3259) trace Negative - Negative POCT U GLU (test code = 3256) negative Negative - Negative POCT U KETONE (test code = 3258) negative Negative - Negative POCT U BLD (test code = 3257) negative Negative - Negative [facility] [id number] 20:41:00 Test Item Value Reference Range Interpretation Comments POCT PREG (test code = 1605) Positive On board controls acceptable with C Yes Line (test code = 3574) POCT PREG LOT # (test code = 3575) POCT PREG TEST DATE (test code = 3576) [facility] URINALYSIS W/O SPECIFIC [id number] 20:41:00 Test Item Value Reference Range Interpretation Comments POCT PH U (test code = 3254) 6 mg/dl 5-8 POCT U LEUK EST (test code = negative Negative - Negative 3263) POCT U NIT (test code = 3262) negative Negative - Negative POCT U PROT (test code = 3259) trace Negative - Negative POCT U GLU (test code = 3256) negative Negative - Negative POCT U KETONE (test code = 3258) negative Negative - Negative POCT U BLD (test code = 3257) negative Negative - Negative [facility] [id number] 20:41:00 Test Item Value Reference Range Interpretation Comments POCT PREG (test code = 1605) Positive On board controls acceptable with C Yes Line (test code = 3574) POCT PREG LOT # (test code = 3575) POCT PREG TEST DATE (test code = 3576) [facility] URINALYSIS W/O SPECIFIC [id number] 20:41:00 Test Item Value Reference Range Interpretation Comments POCT PH U (test code = 3254) 6 mg/dl 5-8 POCT U LEUK EST (test code = negative Negative - Negative 3263) POCT U NIT (test code = 3262) negative Negative - Negative POCT U PROT (test code = 3259) trace Negative - Negative POCT U GLU (test code = 3256) negative Negative - Negative POCT U KETONE (test code = 3258) negative Negative - Negative POCT U BLD (test code = 3257) negative Negative - Negative [facility] [id number] 20:41:00 Test Item Value Reference Range Interpretation Comments POCT PREG (test code = 1605) Positive On board controls acceptable with C Yes Line (test code = 3574) POCT PREG LOT # (test code = 3575) POCT PREG TEST DATE (test code = 3575) [facility]. METABOLIC PANEL (16753)2022-01-31 08:50:00 Test Item Value Reference Range Interpretation Comments NA (test code = 138 mmol/L 135-145 5947875838) K (test code = 4.1 mmol/L 3.5-5 0749155835) CL (test code = 106 mmol/L 98-108 9599747712) CO2 TOTAL (test code 24 mmol/L 23-31 = 5704074259) AGAP (test code = 2-16 1779962155) BUN (test code = 18 mg/dL 7-23 1917522645) GLUCOSE (test code = 104 mg/dL 70-110 7114417176) CREATININE (test code 0.73 mg/dL 0.5-1.04 = 4374376142) TOTAL BILI (test code 0.4 mg/dL 0.1-1.1 = 7391249559) CALCIUM (test code = 8.7 mg/dL 8.6-10.6 1099919391) T PROTEIN (test code 6.8 g/dL 6.3-8.2 = 2948691476) ALBUMIN (test code = 4.1 g/dL 3.5-5 3780296660) ALK PHOS (test code = 97 U/L 34-122 6130280653) ALTv (test code = 17 U/L 5-35 1742-6) AST(SGOT) (test code 20 U/L 13-40 = 7236368827) eGFR (test code = mL/min/1.73m2 3525730328) GADIEL (test code = GADIEL) Association of Glomerular Filtration Rate (GFR) and Staging of Kidney Disease* + + +- +| GFR (mL/min/1.73 m2) ?| With Kidney Damage ?| ?Without Kidney Damage+ ------+ ----+ ------+| ?>90 ?| ?Stage one ?| ? Normal ?+ -+ + -+| ?60-89 ?| ?Stage two ?| ? Decreased GFR ? + + +- +| ?30-59 ?| ?Stage three ?| ? Stage three ? + + +- +| ?15-29 ?| ?Stage four ? | ? Stage four ?+ -+ + -+| ?<15 (or dialysis) ? ?| ?Stage five ? | ? Stage five ?+ -+ + -+ *Each stage assumes the associated GFR level has been in effect for at least three months. ?Stages 1 to 5, with or without kidney disease, indicate chronic kidney disease. Notes: Determination of stages one and two (with eGFR >59mL/min/1.73 m2) requires estimation of kidney damage for at least three months as defined by structural or functional abnormalities of the kidney, manifested by either:Pathological abnormalities or Markers of kidney damage (including abnormalities in the composition of the blood or urine or abnormalities in imaging tests). [facility] Test Item Value Reference Range Interpretation Comments LIPASE (test code = 8636197110) 26 U/L 0-220 Lab Interpretation (test code = Normal 84568-7) [facility] [id number] 08:36:55 Test Item Value Reference Range Interpretation Comments WBC (test code = See_Comment [Automated 8990-2) message] The sy stem which generated this result transmitted reference range : 4.30 - 11.10 10*3/?L. The reference range was not used to interpret this result as normal/abnormal . RBC (test code = See_Comment L [Automated 789-8) message] The sy stem which generated this result transmitted reference range : 3.93 - 5.25 10*6/?L. The reference range was not used to interpret this result as normal/abnormal . HGB (test code = 10.4 g/dL 11.6-15 L 718-7) HCT (test code = 32.0 % 35.7-45.2 L 4544-3) MCV (test code = 84.7 fL 80.6-95.5 787-2) MCH (test code = 27.5 pg 25.9-32.8 785-6) MCHC (test code = 32.5 g/dL 31.6-35.1 786-4) RDW-SD (test code = 43.5 fL 39-49.9 46124-8) RDW-CV (test code = 14.2 % 12-15.5 788-0) PLT (test code = See_Comment [Automated 777-3) message] The sy stem which generated this result transmitted reference range : 166 - 358 10*3/ ?L. The reference r unique was not used to interpret this result as normal/abnormal . MPV (test code = 10.4 fL 9.5-12.9 99755-3) NRBC/100 WBC (test See_Comment [Automat ed code = 5002813800) message] The system which generated this result transmitted reference range : 0.0 - 10.0 /100 WBCs. The refer ence range was not u sed to interpret th is result as normal/abnormal . NRBC x10^3 (test code See_Comment [Auto mated = 5363382701) message] The s ystem which generated this result transmitted reference range : 10*3/?L. The reference range was not used to interpret this result as normal/abnormal . GRAN MAT (NEUT) % 74.9 % (test code = 770-8) IMM GRAN % (test code 0.30 % = 5937314626) LYMPH % (test code = 14.9 % 736-9) MONO % (test code = 7.8 % 5905-5) EOS % (test code = 1.8 % 713-8) BASO % (test code = 0.3 % 706-2) GRAN MAT x10^3(ANC) 7.60 10*3/uL 1.88-7.09 H (test code = 0771309306) IMM GRAN x10^3 (test 0.03 10*3/uL 0-0.06 code = 3862277796) LYMPH x10^3 (test code 1.51 10*3/uL 1.32-3.29 = 731-0) MONO x10^3 (test code 0.79 10*3/uL 0.33-0.92 = 742-7) EOS x10^3 (test code = 0.18 10*3/uL 0.03-0.39 711-2) BASO x10^3 (test code 0.03 10*3/uL 0.01-0.07 = 704-7) Lab Interpretation Abnormal (test code = 27198-7) [facility] [id number] 08:29:00 Test Item Value Reference Range Interpretation Comments POCT PREG (test code = 1605) negative On board controls acceptable with present C Line (test code = 3574) POCT PREG LOT # (test code = 3575) [id number] POCT PREG TEST DATE (test 2023-06-26 code = 3576) Lab Interpretation (test code = Normal 18204-1) [facility]"
[2022-09-16] MEDS ORDERED: Magnesium Sulfate 2gm IVPB 2 G/50 ML BAG IV ONE ×2 (12:42→16:24)
[2022-09-16 12:58] LABS: Absolute Lymphocytes (CBC) 0.3 K/uL (0.7-4.9); Hematocrit 25.7 % (36.0-45.0); Lymphocytes % 4.4 % (15.3-44.8); MCV 86.3 fL (80-100); MPV 8.2 fL (7.6-11.3); RBC Red Blood Cell Count 2.98 M/uL (3.86-4.86)
[2022-09-16 13:03] LABS: Specific Gravity 1.012 (1.005-1.030); Transitional Epithelial <5 /HPF (None Seen); Urine Bacteria <20 /HPF (<20); Urine Bilirubin NEGATIVE (Negative); Urine Blood Negative (Negative); Urine Clarity Clear (Clear); Urine Color Light-Yellow (Yellow); Urine Glucose NEGATIVE (Negative); Urine Mucus Slight /HPF (None Seen); Urine Protein NEGATIVE (Negative); Urine RBC <5 /HPF (None Seen); Urine Urobilinogen Normal (Normal); Urine pH 6.5 (5.0-7.0)
[2022-09-16 13:15] LABS: Albumin 2.8 g/dL (3.4-5.0); Bilirubin Total 0.3 mg/dL (0.2-1.0); Potassium 3.3 mEq/L (3.5-5.1); Protein, Total 7.5 g/dL (6.4-8.2)
--- NOTE | 2022-09-16 14:41 | EDPHYS ---
Physician Documentation [facility] Name: Shyann Seymour Age: 26 yrs Sex: Female : 1995 Arrival Date: 09/16/2022 Time: 12:11 Bed 1 Private MD: ED Physician Bennie Yu HPI: 09/16 15:00 This 26 yrs old Female presents to ER via Wheelchair with complaints of 30 wks rt preg +preeclamsia, Nausea, Leg Swelling, Dizziness, Headache. 15:00 Patient is a G3, P3 currently at 30 weeks gestation with prior history of preeclampsia rt presents to the ED from her OBs office today for dizziness. She states that since leaving, she developed a headache. She states that the symptoms are similar to when she had preeclampsia in the past. Reports some mild bilateral lower extremity edema that has been present for several days. Denies other acute complaints at this time, symptoms are moderate severity, no other aggravating or alleviating factors.. 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 - Social history:: Smoking status: Patient denies any tobacco usage or history of. - Family history:: not pertinent. ROS: 15:00 Constitutional: Negative for fever, chills, and weight loss, Respiratory: Negative for rt shortness of breath, cough, wheezing, and pleuritic chest pain, Abdomen/GI: Negative for abdominal pain, nausea, vomiting, diarrhea, and constipation, MS/Extremity: Negative for injury and deformity, Skin: Negative for injury, rash, and discoloration, Psych: Negative for depression, anxiety, suicide ideation, homicidal ideation, and hallucinations. 15:00 Cardiovascular: Positive for edema, Negative for chest pain. 15:00 Neuro: Positive for dizziness, headache. Exam: 15:00 Constitutional: This is a well developed, well nourished patient who is awake, alert, rt and in no acute distress. Head/Face: Normocephalic, atraumatic. Chest/axilla: Normal chest wall appearance and motion. Nontender with no deformity. No lesions are appreciated. Cardiovascular: Regular rate and rhythm with a normal S1 and S2. No gallops, murmurs, or rubs. Normal PMI, no JVD. No pulse deficits. Respiratory: Lungs have equal breath sounds bilaterally, clear to auscultation and percussion. No rales, rhonchi or wheezes noted. No increased work of breathing, no retractions or nasal flaring. Abdomen/GI: Soft, non-tender, with normal bowel sounds. No distension or tympany. No guarding or rebound. No evidence of tenderness throughout. Skin: Warm, dry with normal turgor. Normal color with no rashes, no lesions, and no evidence of cellulitis. Neuro: Awake and alert, GCS 15, oriented to person, place, time, and situation. Cranial nerves II-XII grossly intact. Motor strength 5/5 in all extremities. Sensory grossly intact. Cerebellar exam normal. Normal gait. Psych: Awake, alert, with orientation to person, place and time. Behavior, mood, and affect are within normal limits. Vital Signs: 12:28 BP 144 / 72; Pulse 108; Resp 20; Temp 98.1; Pulse Ox 100% on R/A; Weight 95.25 kg; mb9 Height 5 ft. 1 in. ; Pain 4/10; 13:06 BP 130 / 89; Pulse 105; Resp 22; Pulse Ox 99% on R/A; mb9 14:27 BP 134 / 78; Pulse 104; Resp 20; Pulse Ox 98% on R/A; mb9 12:28 Body Mass Index 39.68 (95.25 kg, 154.94 cm) mb9 12:28 Pain Scale: Adult mb9 MDM: 12:26 Patient medically screened. rt 15:00 Differential diagnosis: Benign headache, gestational hypertension, preeclampsia. Data rt reviewed: vital signs, nurses notes, lab test result(s). Consideration of Admission/Observation After discussion with the patient's BOX SPRING MAKER, request transfer to [facility] for further care.. 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 Calderon, accepting BOX SPRING [employer]KER, requested more magnesium given.. Test considered but Not performed: CT: No focal neurodeficits, does not require CT scan of the head.. Counseling: I had a detailed discussion with the patient and/or guardian regarding: the historical points, exam findings, and any diagnostic results supporting the discharge/admit diagnosis, the presence of at least one elevated blood pressure reading (>120/80) during this emergency department visit, lab results, the need to transfer to another facility. 09/16 12:33 Order name: UAM; Complete Time: 13:17 rt 09/16 12:33 Order name: CBC with Diff; Complete Time: 13:17 rt 09/16 12:33 Order name: CMP; Complete Time: 13:17 rt Administered Medications: 12:42 Drug: Magnesium Sulfate IVPB 2 grams Route: IVPB; Infused Over: 30 mins; Site: right mb9 forearm; 13:19 Follow up: Response: No adverse reaction; IV Status: Completed infusion 9 15:08 Drug: Magnesium Sulfate IVPB 2 grams Route: IVPB; Infused Over: 30 mins; Site: right mb9 forearm; 15:37 Follow up: Response: No adverse reaction; IV Status: Completed infusion 9 15:50 Drug: Magnesium Sulfate IVPB 2 grams Route: IVPB; Infused Over: 2 continuous; Site: mb9 right forearm; 16:22 Follow up: Response: No adverse reaction; IV Status: Infusion continued upon transfer mb9 Disposition Summary: 09/16/22 14:41 Transfer Ordered Transfer Location: [facility] rt Reason: Higher level of care rt Condition: Undetermined rt Problem: new rt Symptoms: have improved rt Accepting Physician: Dr. Calderon(09/16/22 16:23) mb9 Diagnosis - Hypertension in rt - Headache rt Forms: - Medication Reconciliation Form rt - SBAR form rt Signatures: Dispatcher [employer] Ani aTn RN RN mb9 Bennie Yu MD MD rt Corrections: (The following items were deleted from the chart) 15:00 14:41 rt rt 16: 15:00 Dr. Calderon rt mb9 16:23 16:22 Dr. Kvng [email or web address] mb9
--- NOTE | 2022-09-16 14:41 | ER ---
Nurse's Notes [facility] Name: Shyann Seymour Age: 26 yrs Sex: Female : 1995 Arrival Date: 09/16/2022 Time: 12:11 Bed 1 Private MD: Diagnosis: Hypertension in ;Headache Presentation: 09/16 12:28 Chief complaint: Patient states: "I just feel off. I've been drowsy and having swollen mb9 feet for 2 days now. Today, I started getting nauseous, having blurred vision, and a headache. I called my OB and she told me to come to the ER. I feel like it's my preeclampsia acting up.". Coronavirus screen: Vaccine status: Patient reports receiving the 2nd dose of the covid vaccine. Ebola Screen: No symptoms or risks identified at this time. Initial Sepsis Screen: Does the patient meet any 2 criteria? No. Patient's initial sepsis screen is negative. Does the patient have a suspected source of infection? No. Patient's initial sepsis screen is negative. Risk Assessment: Do you want to hurt yourself or someone else? Patient reports no desire to harm self or others. Onset of symptoms was September 16, 2022. 12:28 Method Of Arrival: Wheelchair mb9 12:28 Acuity: ORIN 2 mb9 Triage Assessment: 12:32 General: Appears uncomfortable, Behavior is cooperative. Pain: Complains of pain in mb9 head Pain does not radiate. Pain currently is 4 out of 10 on a pain scale. Quality of pain is described as aching, throbbing, Pain began suddenly, Is continuous. Neuro: Humphreys Agitation-Sedation Scale (RASS): 0 - Alert and Calm Level of Consciousness is awake, alert, obeys commands, Oriented to person, place, time, situation, Appropriate for age. Neuro: Reports blurred vision headache. Cardiovascular: Rhythm is sinus tachycardia. Respiratory: Airway is patent Respiratory effort is even, unlabored, Respiratory pattern is regular, symmetrical. GI: Abdomen is flat, Bowel sounds present X 4 quads. Abd is soft X 4 quads Reports nausea. Derm: Skin is pink, warm \\T\\ dry. Musculoskeletal: Swelling present in right foot, left foot, right leg and left leg. 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 - Social history:: Smoking status: Patient denies any tobacco usage or history of. - Family history:: not pertinent. Screenin:34 [facility] ED Fall Risk Assessment (Adult) History of falling in the last 3 months, mb9 including since admission No falls in past 3 months (0 pts) Confusion or Disorientation No (0 pts) Intoxicated or Sedated No (0 pts) Impaired Gait No (0 pts) Mobility Assist Device Used No (0 pt) Altered Elimination No (0 pt) Score/Fall Risk Level 0 - 2 = Low Risk Oriented to surroundings, Maintained a safe environment, Educated pt \\T\\ family on fall prevention, incl call for assistance when getting out of bed. Abuse screen: Denies threats or abuse. Nutritional screening: No deficits noted. Tuberculosis screening: No symptoms or risk factors identified. Assessment: 12:36 Reassessment: see triage assessment. mb9 13:47 Reassessment: No changes from previously documented assessment. Patient and/or family mb9 updated on plan of care and expected duration. Pain level reassessed. Patient is alert, oriented x 3, equal unlabored respirations, skin warm/dry/pink. 14:27 Neuro: Denies blurred vision dizziness, headache. Cardiovascular: Rhythm is sinus mb9 tachycardia. Respiratory: Airway is patent Respiratory effort is even, unlabored, Respiratory pattern is regular, symmetrical. GI: Patient currently denies nausea. Derm: Skin is pink, warm \\T\\ dry. 15:28 Reassessment: Report given to Transferring nurse ZANDRA Torrez. mb9 16:22 Reassessment: Report given to [facility]. mb9 Vital Signs: 12:28 BP 144 / 72; Pulse 108; Resp 20; Temp 98.1; Pulse Ox 100% on R/A; Weight 95.25 kg; mb9 Height 5 ft. 1 in. ; Pain 4/10; 13:06 BP 130 / 89; Pulse 105; Resp 22; Pulse Ox 99% on R/A; mb9 14:27 BP 134 / 78; Pulse 104; Resp 20; Pulse Ox 98% on R/A; mb9 12:28 Body Mass Index 39.68 (95.25 kg, 154.94 cm) mb9 12:28 Pain Scale: Adult mb9 ED Course: 12:12 Patient arrived in ED. am2 12:18 Ani Gutierrez, ZANDRA is Primary Nurse. mb9 12:26 Bennie Yu MD is Attending Physician. rt 12:28 Arm band placed on. mb9 12:31 Triage completed. mb9 12:33 Placed in gown. Bed in low position. Call light in reach. Side rails up X 1. Client mb9 placed on continuous cardiac and pulse oximetry monitoring. NIBP monitoring applied. nurse monitoring on. 12:40 Inserted saline lock: 22 gauge in right forearm, using aseptic technique. mb9 12:52 CMP Sent. mb9 12:52 CBC with Diff Sent. mb9 12:52 UAM Sent. mb9 13:54 No provider procedures requiring assistance completed. mb9 14:46 initiated transfer to [facility]. bd 15:28 Patient transferred, IV remains in place. mb9 Administered Medications: 12:42 Drug: Magnesium Sulfate IVPB 2 grams Route: IVPB; Infused Over: 30 mins; Site: right 9 forearm; 13:19 Follow up: Response: No adverse reaction; IV Status: Completed infusion mb9 15:08 Drug: Magnesium Sulfate IVPB 2 grams Route: IVPB; Infused Over: 30 mins; Site: right mb9 forearm; 15:37 Follow up: Response: No adverse reaction; IV Status: Completed infusion mb9 15:50 Drug: Magnesium Sulfate IVPB 2 grams Route: IVPB; Infused Over: 2 continuous; Site: 9 right forearm; 16:22 Follow up: Response: No adverse reaction; IV Status: Infusion continued upon transfer mb9 Medication: 12:33 VIS not applicable for this client. mb9 Outcome: 14:41 ER care complete, transfer ordered by . rt 15:28 Transferred to [facility], Transfer form completed. mb9 15:28 Transferred 15:28 Condition: stable 15:28 Instructed on the need for transfer. 16:23 Patient left the ED. mb9 Signatures: Elise Cheung Amanda am2 Ani Gutierrez, RN RN mb9 Bennie Yu MD MD rt
[2022-09-16] MEDS ORDERED: Magnesium Sulfate 2gm IVPB 4 G/100 ML BAG IV ONE (15:09)
[2022-09-16 17:18] VITALS: TEMP 98.1
[2022-09-16 17:25] VITALS: BP 134/78; O2SAT 98
== END 2022-09-16 16:23 | disposition short-term general hospital (02) ==
LOC: ER 12:11
DX: O13.3 Gestational [pregnancy-induced] hypertension without significant proteinuria, third trimester (principal); Z3A.30 30 weeks gestation of pregnancy
CPT/HCPCS: 85025; 81001; 36415; 80053; J3475 ×3